=== PATIENT | female | born 1980 | race Caucasian/White ===

== ENCOUNTER 2017-05-05 14:42 | Inpatient (IN) | payer OTHER ==
[2017-05-05 14:51] VITALS: BMI 27.9
--- NOTE | 2017-05-05 14:57 | PDOC ---
Rapid Medical Evaluation Time Seen by Provider: 05/05/17 14:49 Medical Evaluation: Allergies Allergy/AdvReac Type Severity Reaction Status Date / Time No Known Allergies Allergy Verified 05/05/17 14:46 05/05/17 14:49 I have performed a brief in-person evaluation of this patient. The patient presents with a chief complaint of lower abdominal pain with vaginal bleeding and clots x 5 days. S/p 2 weeks ago, states vaginal bleeding decreased after , worsen in past 5 days, with clots, pain and heavier. Also states shortness of breath, and dizziness, took no medication so far. Pertinent physical exam findings diaphoretic, appears uncomfortable lungs clear bilat heart s1s2 tenderness in lower abdomen bilaterally I have ordered the following: cbc, bhcg, type and hold The patient will proceed to the ED for further evaluation.
[2017-05-05] MEDS ORDERED: KETOROLAC TROMETHAMINE 30 MG/1 ML VIAL IM ONE (14:58)
[2017-05-05 15:34] LABS: BASO % 0.2 % (0-2.0); EOS % 1.2 % (0-4.5); HEMATOCRIT 28.6 % (32.4-45.2); HEMOGLOBIN 9.9 GM/dL (10.7-15.3); MCH 31.7 pg (25.7-33.7); MCHC 34.7 g/dl (32.0-36.0); MEAN CELL VOLUME 91.5 fl (80-96); MONO % 2.1 % (3.8-10.2); NEUT % 87.5 % (42.8-82.8); PLATELET COUNT 377 K/MM3 (134-434); RBC 3.12 M/mm3 (3.60-5.2); WHITE BLOOD COUNT 15.5 K/mm3 (4.0-10.0)
--- NOTE | 2017-05-05 16:52 | PDOC ---
History of Present Illness - General Chief Complaint: Vaginal Bleeding Stated Complaint: VAGINAL BLEEDING Time Seen by Provider: 05/05/17 14:49 - History of Present Illness Initial Comments: 05/05/17 17:26 Ms. Sloan is a 36 yo female w/ no pmh who presents w/ 3 days of vaginal bleeding , occasional nausea, and pelvic pain. Ms. Sloan had a D&C 2 weeks ago after which she had some cramping and bleeding but reports that this had abated for 3 or 4 days before these new symptoms started. She reports she is currently bleeding consistent with a heavy period day. The patient denies chest pain, shortness of breath, headache and dizziness. Denies fever, chills, nausea, vomit, diarrhea and constipation. Denies dysuria, frequency, urgency and hematuria. Allergies: NKDA Past History - Past Medical History Allergies/Adverse Reactions: Allergies Allergy/AdvReac Type Severity Reaction Status Date / Time No Known Allergies Allergy Verified 05/05/17 14:46 Home Medications: Ambulatory Orders NK [No Known Home Medication] 05/05/17 COPD: No Other medical history: DENIES. - Suicide/Smoking/Psychosocial Hx Smoking History: Never smoked Review of Systems - Review of Systems Comments:: 05/05/17 17:52 GENERAL/CONSTITUTIONAL: No fever or chills. No weakness. HEAD, EYES, EARS, NOSE AND THROAT: No change in vision. No ear pain or discharge. No sore throat. CARDIOVASCULAR: No chest pain or shortness of breath RESPIRATORY: No cough, wheezing, or hemoptysis. GASTROINTESTINAL: +Pelvic pain bilaterally. Mild nausea without vomiting, diarrhea or constipation. GENITOURINARY: +Heavy menstrual bleeding as described. No dysuria, frequency, or change in urination. MUSCULOSKELETAL: No joint or muscle swelling or pain. No neck or back pain. SKIN: No rash NEUROLOGIC: No headache, vertigo, loss of consciousness, or change in strength/ sensation. ENDOCRINE: No increased thirst. No abnormal weight change HEMATOLOGIC/LYMPHATIC: No anemia, easy bleeding, or history of blood clots. ALLERGIC/IMMUNOLOGIC: No hives or skin allergy. *Physical Exam - Vital Signs Last Vital Signs Temp Pulse Resp BP Pulse Ox 98.9 F 109 H 19 129/88 100 05/05/17 14:46 05/05/17 14:46 05/05/17 14:46 05/05/17 14:46 05/05/17 14:46 - Physical Exam Comments: 05/05/17 17:53 GENERAL: Awake, alert, and fully oriented, in no acute distress HEAD: No signs of trauma, normocephalic, atraumatic EYES: PERRLA, EOMI, sclera anicteric, conjunctiva clear ENT: Auricles normal inspection, hearing grossly normal, nares patent, oropharynx clear without exudates. Moist mucosa NECK: Normal ROM, supple, no lymphadenopathy, JVD, or masses LUNGS: No distress, speaks full sentences, clear to auscultation bilaterally HEART: Regular rate and rhythm, normal S1 and S2, no murmurs, rubs or gallops, peripheral pulses normal and equal bilaterally. ABDOMEN: Soft, nontender, normoactive bowel sounds. No guarding, no rebound. No masses EXTREMITIES: Normal inspection, Normal range of motion, no edema. No clubbing or cyanosis. NEUROLOGICAL: Cranial nerves II through XII grossly intact. Normal speech, normal gait, no focal sensorimotor deficits SKIN: Warm, Dry, normal turgor, no rashes or lesions noted. : Patient extremely tender on vaginal exam. Blood in vaginal vault and draining from cervical os with scant yellow fluid as well. Cervix boggy. ED Treatment Course - LABORATORY CBC & Chemistry Diagram: 05/06/17 06:00 05/06/17 06:00 - ADDITIONAL ORDERS Additional order review: Laboratory Results 05/05/17 05/05/17 15:07 15:07 Beta HCG, Quant 452.5 Blood Type O POSITIVE Antibody Screen Negative 05/05/17 15:07 RBC 3.12 L MCV 91.5 MCHC 34.7 RDW 13.0 MPV 8.0 Neutrophils % 87.5 H Lymphocytes % 9.0 Monocytes % 2.1 L Eosinophils % 1.2 Basophils % 0.2 Medical Decision Making - Medical Decision Making 05/05/17 18:08 Ms. Sloan is a 36 yo female w/ no pmh who presents for evaluation of pelvic pain and bleeding as described. Exam/history concerning for endometritis; clindamycin 600 given and transvaginal US ordered to evaluate for POC. 05/05/17 19:04 Patient signed out to Dr. Shafer for further care. *DC/Admit/Observation/Transfer Diagnosis at time of Disposition: Vaginal bleeding - Discharge Dispostion Condition at time of disposition: Stable - Referrals - Patient Instructions - Post Discharge Activity
[2017-05-05] MEDS ORDERED: KETOROLAC TROMETHAMINE 30 MG/1 ML VIAL ONE (17:32)
[2017-05-05 18:05] LABS: URINE APPEARANCE SLCLOUDY; URINE BILIRUBIN NEGATIVE (NEGATIVE); URINE BLOOD 3+ (NEGATIVE); URINE COLOR LTYELLOW; URINE GLUCOSE (UA) NEGATIVE (NEGATIVE); URINE KETONE NEGATIVE (NEGATIVE); URINE NITRITE NEGATIVE (NEGATIVE); URINE PROTEIN NEGATIVE (NEGATIVE); URINE UROBILINOGEN NEGATIVE mg/dL (0.2-1.0)
[2017-05-05] MEDS ORDERED: CLINDAMYCIN 600MG PREMIX IVPB 600 MG/50 ML BAG IVPB ONE ×2 (18:06→18:12)
--- NOTE | 2017-05-05 18:08 | PDOC ---
Attending Attestation - Resident Resident Name: Jose Warren - ED Attending Attestation I have performed the following: I have examined & evaluated the patient, The case was reviewed & discussed with the resident, I agree w/resident's findings & plan, Exceptions are as noted - HPI HPI: 05/05/17 17:59 36y F , no pmhx presents with vag bleeding and lower abd pain. s/p D/C ~10 weeks ago in the city (?near [facility] -?[facility]), had some bleeding and pain but that resolved after a few days. Pt endorses onset of pelvic pain, and bleeding like a heavy period. Pt denies any carlos foul smelling discharge. pt denies feve/rchills, vomiting, vaginal discharge/bleeding on exam pt well appearing in n odistress abd soft, but focal tenderness in suprapubic region pelvic exam noted for blood and smal amount of foul discharge vitals reviewed, afebrile, initially slightly tachy but improved on reasessement blood work noted for leukocytosis to 15 lara obtain TVUS to r/o retained products - concern for possible endometritis - will start clindamycin - Physicial Exam PE: 05/05/17 19:34 see above - Medical Decision Making 05/05/17 19:34 see above case signed out to evening team to follow up and reassess & likely dw nurse gynecology regarding dispo
[2017-05-05 18:15] LABS: URINE LEUK ESTERASE 2+ (NEGATIVE)
[2017-05-05 18:18] LABS: EPI CELLS RARE /HPF (FEW); URINE BACTERIA RARE /hpf (NONE SEEN); URINE HYALINE CAST 2 /lpf; URINE MUCUS FEW
--- NOTE | 2017-05-05 20:27 | PDOC ---
*Physical Exam - Vital Signs Last Vital Signs Temp Pulse Resp BP Pulse Ox 98.5 F 96 H 18 124/66 100 05/05/17 18:10 05/05/17 18:10 05/05/17 18:10 05/05/17 18:10 05/05/17 18:10 - Physical Exam Comments: GENERAL: Awake, alert, and fully oriented, in no acute distress HEAD: No signs of trauma, normocephalic, atraumatic EYES: PERRLA, EOMI, sclera anicteric, conjunctiva clear ENT:Hearing grossly normal, nares patent, oropharynx clear without exudates. Moist mucosa NECK: Normal ROM, supple, no lymphadenopathy, JVD, or masses LUNGS: No distress, speaks full sentences, clear to auscultation bilaterally HEART: Regular rate and rhythm, normal S1 and S2, no murmurs, rubs or gallops, peripheral pulses normal and equal bilaterally. ABDOMEN: Soft, lower abdominal ttp, normoactive bowel sounds. No guarding, no rebound. No masses. Neg CVA ttp. EXTREMITIES : Normal inspection, Normal range of motion, no edema. No clubbing or cyanosis. SKIN: Warm, Dry, normal turgor, no rashes or lesions noted ED Treatment Course - LABORATORY CBC & Chemistry Diagram: 05/05/17 21:50 05/05/17 19:50 - ADDITIONAL ORDERS Additional order review: Laboratory Results 05/05/17 05/05/17 05/05/17 17:30 15:07 15:07 Beta HCG, Quant 452.5 Urine Color Ltyellow Urine Appearance Slcloudy Urine pH 6.0 Ur Specific [place] 1.016 Urine Protein Negative Urine Glucose (UA) Negative Urine Ketones Negative Urine Blood 3+ H Urine Nitrite Negative Urine Bilirubin Negative Urine Urobilinogen Negative Ur Leukocyte Esterase 2+ H Urine WBC (Auto) 15 Urine RBC (Auto) 564 Ur Epithelial Cells Rare Urine Bacteria Rare Hyaline Casts 2 Urine Mucus Few Blood Type O POSITIVE Antibody Screen Negative 05/05/17 15:07 RBC 3.12 L MCV 91.5 MCHC 34.7 RDW 13.0 MPV 8.0 Neutrophils % 87.5 H Lymphocytes % 9.0 Monocytes % 2.1 L Eosinophils % 1.2 Basophils % 0.2 - Medications Given in the ED: ED Medications Discontinued Medications Generic Name Dose Route Start Last Admin Trade Name Freq PRN Reason Stop Dose Admin Clindamycin Phosphate 600 mg in 50 mls @ 100 mls/hr 05/05/17 18:06 05/05/17 18:19 Cleocin 600 Mg Premix Ivpb - IVPB 05/05/17 18:35 100 mls/hr ONCE ONE Administration Ketorolac Tromethamine 30 mg 05/05/17 14:58 05/05/17 17:39 Toradol Injection - IM 05/05/17 14:59 30 mg ONCE ONE Administration Medical Decision Making - Medical Decision Making 05/05/17 20:27 36 yo F with no significant pmh who presents w/ 3 days of vaginal bleeding , and lower abdominal and pelvic pain s/p D/C 10 days ago [place] the [place] [facility]. Pt. with 3-4 days of bleeding initially after D&C 2 weeks ago.Denies N/V, F/C, CP, SOB, lightheadedness, urinary complaints, diarrhea, constipation. 1 pad per 2 hours. Vitals normal on arrival, and physical exam with slight suprpaubic lower abdominal ttp. Ed course noteable for WBC~15. 5 and UA with 564 RBC, and 3 + blood. TVUS pending. R/o retained POC. There is concern for possible endometritis. Clindamycin 600 mg started. Coags pending. ED Course: TVUS: Presence of doppler signal in endometrium suggestive of retained POC. Heterogoenous thickening of endometrium suggestive of hematoma/blood products. 05/05/17 20:50 Dr. Restrepo contacted at office number [phone] and cell phone with message requesting call back for retained POC. Per Dr. Restrepo Possible Methergine vs. D&C. Dr. Restrepo recommends Methergine Q6 0.2 mg. 05/05/17 21:42 Repeat CBC NS 1 L D5 1/2 NS, NPO 05/05/17 21:43 Patient bleeding improved. Pain is now slightly improved. 05/05/17 22:15 Repeat Hgb 9.9-->9.5 WBC 14.4 Methergine 0.2 Q6 hours for 24 hours 05/05/17 22:52 Admit to med/surg. Pt. accepted onto hospitalist service. *DC/Admit/Observation/Transfer Diagnosis at time of Disposition: Vaginal bleeding - Discharge Dispostion Condition at time of disposition: Stable Admit: No - Referrals - Patient Instructions Printed Discharge Instructions: DI for Vaginal Bleeding Additional Instructions: Please return to the emergency department with any new or worsening symptoms or concerns. Please follow up with your [employer]imator Project [employer] physician within 24 hours. Please take as Methergine 0.2 mg every 6 hours for the next 24 hours. 4 pills total. - Post Discharge Activity - Attestations Physician Attestion: 05/05/17 22:37 I attest to the information provided in this note.
[2017-05-05 20:45] LABS: ALK PHOS 83 U/L (45-117); ANION GAP 7 (8-16); BILIRUBIN,TOTAL 0.3 mg/dL (0.2-1.0); BLOOD UREA NITROGEN 10 mg/dL (7-18); CALCIUM 7.9 mg/dL (8.5-10.1); CHLORIDE 104 mmol/L (98-107); CO2 24 mmol/L (21-32); CREATININE 0.4 mg/dL (0.55-1.02); GLUCOSE,RANDOM 86 mg/dL (74-106); SGOT/AST 15 U/L (15-37); SGPT/ALT 40 U/L (12-78); SODIUM 135 mmol/L (136-145); TOT PROT 6.5 g/dl (6.4-8.2)
[2017-05-05] MEDS ORDERED: SODIUM CHLORIDE 1,000 ML IV STA (21:41)
[2017-05-05] MEDS ORDERED: DEXTROSE 5%-0.45% SALINE 1,000 ML IV SCH (21:45)
[2017-05-05 22:04] LABS: BASO % 0.3 % (0-2.0); EOS % 1.5 % (0-4.5); HEMATOCRIT 27.5 % (32.4-45.2); HEMOGLOBIN 9.5 GM/dL (10.7-15.3); LYMPH % 16.1 % (8-40); MCH 31.5 pg (25.7-33.7); MCHC 34.5 g/dl (32.0-36.0); MEAN CELL VOLUME 91.3 fl (80-96); MEAN PLT VOLUME 7.8 fl (7.5-11.1); NEUT % 79.1 % (42.8-82.8); PLATELET COUNT 357 K/MM3 (134-434); RBC 3.01 M/mm3 (3.60-5.2); RDW 12.9 % (11.6-15.6); WHITE BLOOD COUNT 14.4 K/mm3 (4.0-10.0)
[2017-05-05 22:31] LABS: INR 1.04 (0.82-1.09); PROTHROMBIN TIME (PATIENT) 11.8 SEC (9.98-11.88)
[2017-05-05 22:33] LABS: ACTIVATED PTT 23.5 SECONDS (26.9-34.4)
[2017-05-05] MEDS ORDERED: METHYLERGONOVINE MALEATE 0.2 MG TABLET (FP) PO ONE (22:51)
--- NOTE | 2017-05-05 23:00 | PN ---
Teaching Attending Note Name of Resident: Terell Esparza ATTENDING PHYSICIAN STATEMENT I saw and evaluated the patient. I reviewed the resident's note and discussed the case with the resident. I agree with the resident's findings and plan as documented. SUBJECTIVE: 36 yo F yo no pmhx.who presents with bleeding from the vagina and lower abdominal pain. She had a D&C done 10 weeks ago ( ?[facility]). States she has pelvic pain and heavy vaginal bleeding. States she was bleeding at rate of 1 pad/hr earlier today, but now bleeding has significantly subsided. Notes no fevers or chills. No foul/malorderous discharge. No N, V,D. No chest pain, pressure or shortness of breath. Does note suprapubic pain. OBJECTIVE: Physical: VS: Vital Signs Period Temp Pulse Resp BP Sys/Dodson Pulse Ox Last 24 Hr 98.5 F-98.9 F 86-109 18-19 103-129/60-88 100-100 GEN: NAD, Resting in bed, AA0X3 HEENT: NCAT, PERRL, Throat without erythema or exudates CARD: RRR S1, S2 RESP: CTAB ABD: BSx4, TTP lower abdomen EXT: - C/C/E Vaginal Exam- Deferred as it was done earlier. CBCD WBC 14.4 K/mm3 (4.0-10.0) H 05/05/17 21:50 RBC 3.01 M/mm3 (3.60-5.2) L 05/05/17 21:50 Hgb 9.5 GM/dL (10.7-15.3) L 05/05/17 21:50 Hct 27.5 % (32.4-45.2) L 05/05/17 21:50 MCV 91.3 fl (80-96) 05/05/17 21:50 MCHC 34.5 g/dl (32.0-36.0) 05/05/17 21:50 RDW 12.9 % (11.6-15.6) 05/05/17 21:50 Plt Count 357 K/MM3 (134-434) 05/05/17 21:50 MPV 7.8 fl (7.5-11.1) 05/05/17 21:50 CMP Sodium 135 mmol/L (136-145) L 05/05/17 19:50 Potassium 4.0 mmol/L (3.5-5.1) 05/05/17 19:50 Chloride 104 mmol/L (98-107) 05/05/17 19:50 Carbon Dioxide 24 mmol/L (21-32) 05/05/17 19:50 Anion Gap 7 (8-16) L 05/05/17 19:50 BUN 10 mg/dL (7-18) 05/05/17 19:50 Creatinine 0.4 mg/dL (0.55-1.02) L 05/05/17 19:50 Creat Clearance w eGFR > 60 (>60) 05/05/17 19:50 Random Glucose 86 mg/dL (74-106) 05/05/17 19:50 Calcium 7.9 mg/dL (8.5-10.1) L 05/05/17 19:50 Total Bilirubin 0.3 mg/dL (0.2-1.0) 05/05/17 19:50 AST 15 U/L (15-37) 05/05/17 19:50 ALT 40 U/L (12-78) 05/05/17 19:50 Alkaline Phosphatase 83 U/L (45-117) 05/05/17 19:50 Total Protein 6.5 g/dl (6.4-8.2) 05/05/17 19:50 Albumin 3.0 g/dl (3.4-5.0) L 05/05/17 19:50 Urine Test Results Urine Color Ltyellow 05/05/17 17:30 Urine Appearance Slcloudy 05/05/17 17:30 Urine pH 6.0 (5.0-8.0) 05/05/17 17:30 Ur Specific [place] 1.016 (1.001-1.035) 05/05/17 17:30 Urine Protein Negative (NEGATIVE) 05/05/17 17:30 Urine Glucose (UA) Negative (NEGATIVE) 05/05/17 17:30 Urine Ketones Negative (NEGATIVE) 05/05/17 17:30 Urine Blood 3+ (NEGATIVE) H 05/05/17 17:30 Urine Nitrite Negative (NEGATIVE) 05/05/17 17:30 Urine Bilirubin Negative (NEGATIVE) 05/05/17 17:30 Ur Leukocyte Esterase 2+ (NEGATIVE) H 05/05/17 17:30 Ur Epithelial Cells Rare /HPF (FEW) 05/05/17 17:30 Urine Bacteria Rare /hpf (NONE SEEN) 05/05/17 17:30 Urine Mucus Few 05/05/17 17:30 US Tranvaginal: Marked heterogenous thickening of the endometrium, No intrauterine gest. sac. Retained products of conception. ASSESSMENT AND PLAN: 36 yo F yo no pmhx.who presents with bleeding from the vagina and lower abdominal pain, found to have retained POC and possible endometritis 1.) Retained Products of Conception - ED spoke with Dr. Restrepo of [employer] [employer] - Recc'd Methergine 0.2mg Q 6hrs - Ruiz Cx - IVF - CBC Q 12 - COAGS - Type & Screen - NPO 2.) Endometritis - Clindamycin/Gentamycin - Ruiz cx - ID consult 3) UTI - U cx - C/W Abx as above 4.) Dvt Ppx - SCDS
--- NOTE | 2017-05-05 23:17 | HP ---
CHIEF COMPLAINT: Worsening lower abdominal pain and vaginal bleed x3 days PCP: HISTORY OF PRESENT ILLNESS: Pt is a 36 yo F (T4 A1 L4) presenting with worsening lower abdominal pain and vaginal bleed since an 2 weeks ago. Pt had a D&C in a different hospital following 18 weeks gestation. She has been having vaginal bleed for the past 2 weeks, that has increased in quantity with large clots and up to 10 changes of pads daily, over the past 3 days. There is associated 8/10 colicky lower abdominal pain, radiating to the back and dysuria. There is also nausea but no vomiting. Today, Pt noticed chills but no fevers. There is associated dizziness, but no syncope, no SOB, no chest pain, no palpitations, no leg swellings and no cough. No change in bowel habit. Last BM was today, of brown, non-bloody well formed stool. Patient has had reduced oral intake due to nausea. Vaginal examination in the ED showed blood in vaginal vault, and draining cervical os with scant yellow fluid and boggy cervix. TVUS: Retained POC. Thickened endometrium suggestive of hematoma/blood products. Dr Restrepo was consulted and recommended methergine 0.2mg Q6H x24hrs ER course was notable for: (1)WBC-14.4, H/H-9.5/27.5 (2)Qnt B-HCHG- 452, UA- LE-2+, bld 3+, RBC-564, WBC-15, Ucx (3) Ketorolac 30mg stat, clindamycin 600mg, IV NS, methergine 0.2mg Recent Travel: PAST MEDICAL HISTORY: None PAST SURGICAL HISTORY: D&C Social History: Smoking: Alcohol: Drugs: Family History: Allergies No Known Allergies Allergy (Verified 05/05/17 14:46) HOME MEDICATIONS: Home Medications Medication Instructions Recorded NK [No Known Home Medication] 05/05/17 REVIEW OF SYSTEMS CONSTITUTIONAL: Absent: fever, chills, diaphoresis, generalized weakness, malaise, loss of appetite, weight change HEENT: Absent: rhinorrhea, nasal congestion, throat pain, throat swelling, difficulty swallowing, mouth swelling, ear pain, eye pain, visual changes CARDIOVASCULAR: Absent: chest pain, syncope, palpitations, irregular heart rate, lightheadedness , peripheral edema RESPIRATORY: Absent: cough, shortness of breath, dyspnea with exertion, orthopnea, wheezing, stridor, hemoptysis GASTROINTESTINAL: Absent: abdominal pain, abdominal distension, nausea, vomiting, diarrhea, constipation, melena, hematochezia GENITOURINARY: Absent: dysuria, frequency, urgency, hesitancy, hematuria, flank pain, genital pain MUSCULOSKELETAL: Absent: myalgia, arthralgia, joint swelling, back pain, neck pain SKIN: Absent: rash, itching, pallor HEMATOLOGIC/IMMUNOLOGIC: Absent: easy bleeding, easy bruising, lymphadenopathy, frequent infections ENDOCRINE: Absent: unexplained weight gain, unexplained weight loss, heat intolerance, cold intolerance NEUROLOGIC: Absent: headache, focal weakness or paresthesias, dizziness, unsteady gait, seizure, mental status changes, bladder or bowel incontinence PSYCHIATRIC: Absent: anxiety, depression, suicidal or homicidal ideation, hallucinations. PHYSICAL EXAMINATION Vital Signs - 24 hr 05/05/17 05/05/17 05/05/17 14:46 18:10 20:52 Temperature 98.9 F 98.5 F 98.5 F Pulse Rate 109 H Pulse Rate [ 96 H 86 Right Radial] Respiratory 19 18 18 Rate Blood Pressure 129/88 Blood Pressure 124/66 103/60 [Left Arm] O2 Sat by Pulse 100 100 100 Oximetry (%) GENERAL: Awake, alert, and fully oriented, in no acute distress. HEAD: Normal with no signs of trauma. EYES: Pupils equal, round and reactive to light, extraocular movements intact, sclera anicteric, conjunctiva clear, no pallor. EARS, NOSE, THROAT: Ears normal, nares patent, oropharynx clear without exudates. Moist mucous membranes. NECK: Normal range of motion, supple without lymphadenopathy, JVD, or masses. LUNGS: Breath sounds equal, clear to auscultation bilaterally. No wheezes, and no crackles. HEART: Regular rate and rhythm, normal S1 and S2 without murmur, rub or gallop. ABDOMEN: Soft, suprapubic tenderness, mild suprapubic fullness up to mid umbilical line, normoactive bowel sounds, no guarding, no rebound : Limited bleeding noted in pad (spotting), reduced volume of blood in ED s/p methergine dose MUSCULOSKELETAL: Normal range of motion at all joints. No bony deformities or tenderness. No CVA tenderness. UPPER EXTREMITIES: 2+ pulses, warm, well-perfused. No cyanosis. No clubbing. No peripheral edema. LOWER EXTREMITIES: 2+ pulses, warm, well-perfused. No calf tenderness. No peripheral edema. NEUROLOGICAL: Cranial nerves II-XII intact. Normal speech. Normal gait. PSYCHIATRIC: Cooperative. Good eye contact. Appropriate mood and affect. Laboratory Results - last 24 hr 05/05/17 05/05/17 05/05/17 15:07 15:07 15:07 WBC 15.5 H RBC 3.12 L Hgb 9.9 L Hct 28.6 L MCV 91.5 MCH 31.7 MCHC 34.7 RDW 13.0 Plt Count 377 MPV 8.0 Neutrophils % 87.5 H Lymphocytes % 9.0 Monocytes % 2.1 L Eosinophils % 1.2 Basophils % 0.2 PT with INR INR PTT (Actin FS) Sodium Potassium Chloride Carbon Dioxide Anion Gap BUN Creatinine Creat Clearance w eGFR Random Glucose Calcium Total Bilirubin AST ALT Alkaline Phosphatase Total Protein Albumin Beta HCG, Quant 452.5 Urine Color Urine Appearance Urine pH Ur Specific [place] Urine Protein Urine Glucose (UA) Urine Ketones Urine Blood Urine Nitrite Urine Bilirubin Urine Urobilinogen Ur Leukocyte Esterase Urine WBC (Auto) Urine RBC (Auto) Ur Epithelial Cells Urine Bacteria Hyaline Casts Urine Mucus Blood Type O POSITIVE Antibody Screen Negative 05/05/17 05/05/17 05/05/17 17:30 19:50 21:50 WBC 14.4 H RBC 3.01 L Hgb 9.5 L Hct 27.5 L MCV 91.3 MCH 31.5 MCHC 34.5 RDW 12.9 Plt Count 357 MPV 7.8 Neutrophils % 79.1 Lymphocytes % 16.1 D Monocytes % 3.0 L Eosinophils % 1.5 Basophils % 0.3 PT with INR INR PTT (Actin FS) Sodium 135 L Potassium 4.0 Chloride 104 Carbon Dioxide 24 Anion Gap 7 L BUN 10 Creatinine 0.4 L Creat Clearance w eGFR > 60 Random Glucose 86 Calcium 7.9 L Total Bilirubin 0.3 AST 15 ALT 40 Alkaline Phosphatase 83 Total Protein 6.5 Albumin 3.0 L Beta HCG, Quant Urine Color Ltyellow Urine Appearance Slcloudy Urine pH 6.0 Ur Specific [place] 1.016 Urine Protein Negative Urine Glucose (UA) Negative Urine Ketones Negative Urine Blood 3+ H Urine Nitrite Negative Urine Bilirubin Negative Urine Urobilinogen Negative Ur Leukocyte Esterase 2+ H Urine WBC (Auto) 15 Urine RBC (Auto) 564 Ur Epithelial Cells Rare Urine Bacteria Rare Hyaline Casts 2 Urine Mucus Few Blood Type Antibody Screen 05/05/17 21:50 WBC RBC Hgb Hct MCV MCH MCHC RDW Plt Count MPV Neutrophils % Lymphocytes % Monocytes % Eosinophils % Basophils % PT with INR 11.80 INR 1.04 PTT (Actin FS) 23.5 L Sodium Potassium Chloride Carbon Dioxide Anion Gap BUN Creatinine Creat Clearance w eGFR Random Glucose Calcium Total Bilirubin AST ALT Alkaline Phosphatase Total Protein Albumin Beta HCG, Quant Urine Color Urine Appearance Urine pH Ur Specific [place] Urine Protein Urine Glucose (UA) Urine Ketones Urine Blood Urine Nitrite Urine Bilirubin Urine Urobilinogen Ur Leukocyte Esterase Urine WBC (Auto) Urine RBC (Auto) Ur Epithelial Cells Urine Bacteria Hyaline Casts Urine Mucus Blood Type Antibody Screen TVUS: Retained POC. Thickened endometrium suggestive of hematoma/blood products. ASSESSMENT/PLAN: Pt is a 36 yo F (T4 A1 L4) presenting with worsening lower abdominal pain and vaginal bleed since an 2 weeks ago. Sepsis 2/2 Endometritis: WBC-14.4, tachycardia Retained products of conception- TVUS Qnt BHCG- 452 Continue IV normal saline @100/hr Cont iv clindamycin 900mg Q8H Gentamicin 100mg ivpb Q8H Iv morphine 2mg (pain >6) PO tylenol (pain<6) PO methergine 0.2mg Q6H x24Hr Gyne consult- Dr Restrepo NPO Monitor CBC Type and screen PT, PTT EKG Ucx, blood cx, UA UTI: Dysuria Positive LE cont antibiotics Pending urine culture FEN NS@100 Monitor lytes and replete as needed NPO PPx: Hold heparin SCDs Dispo: Admit inpatient Visit type - Emergency Visit Emergency Visit: Yes ED Registration Date: 05/06/17 Care time: The patient presented to the Emergency Department on the above date and was hospitalized for further evaluation of their emergent condition. - New Patient This patient is new to me today: Yes Date on this admission: 05/06/17 - Critical Care Critical Care patient: No Hospitalist Screening - Colonoscopy Questionnaire Colonoscopy Questionnaire: Colonoscopy Questionnaire - Patient: 50 - 75 years old and never had a screening colonoscopy: No History of colon or rectal polyps, or CA: Unknown History of IBD, Crohn's disease or UC: Unknown History of abdominal radiation therapy as a child: Unknown - Relative: 1 with colon or rectal CA, or polyps at age 60 or younger: Unknown Colon or rectal CA diagnosed at age 45 or younger: Unknown Multiple relatives with colon or rectal CA: Unknown - Outcome: Screening Result: Negative Screen
[2017-05-06] MEDS ORDERED: GENTAMICIN 100 MG/100 ML BAG IVPB ONE (00:30)
[2017-05-06] MEDS ORDERED: morphine SULFATE 4 MG/ML VIAL IVPUSH PRN (00:48)
[2017-05-06] MEDS: ACETAMINOPHEN 325 MG TABLET (FP) PO PRN ×2 (00:59→16:56)
[2017-05-06] MEDS ORDERED: SODIUM CHLORIDE 1,000 ML IV SCH (01:00)
[2017-05-06] MEDS ORDERED: GENTAMICIN INJECTION 100 MG in SODIUM CHLORIDE 100 ML IVPB ONE (01:15)
[2017-05-06] MEDS: CLINDAMYCIN 900 MG PREMIX IVPB 900 MG/50 ML BAG IVPB SCH ×2 (02:42→10:05)
[2017-05-06] MEDS ORDERED: METHYLERGONOVINE MALEATE 0.2 MG/1 ML AMP IM SCH (04:00)
[2017-05-06] MEDS: METHYLERGONOVINE MALEATE 0.2 MG TABLET (FP) PO SCH ×3 (06:20→18:02)
--- NOTE | 2017-05-06 07:11 | PN ---
Physical Exam: SUBJECTIVE: Patient seen and examined OBJECTIVE: Vital Signs Period Temp Pulse Resp BP Sys/Dodson Pulse Ox Last 24 Hr 98.3 F-98.9 F 80-109 18-19 94-129/54-88 99-100 GENERAL: The patient is awake, alert, and fully oriented, in no acute distress. HEAD: Normal with no signs of trauma. EYES: PERRL, extraocular movements intact, sclera anicteric, conjunctiva clear. No ptosis. ENT: Ears normal, nares patent, oropharynx clear without exudates, moist mucous membranes. NECK: Trachea midline, full range of motion, supple. LUNGS: Breath sounds equal, clear to auscultation bilaterally, no wheezes, no crackles, no accessory muscle use. HEART: Regular rate and rhythm, S1, S2 without murmur, rub or gallop. ABDOMEN: Soft, nontender, nondistended, normoactive bowel sounds, no guarding, no rebound, no hepatosplenomegaly, no masses. EXTREMITIES: 2+ pulses, warm, well-perfused, no edema. NEUROLOGICAL: Cranial nerves II through XII grossly intact. Normal speech, gait not observed. PSYCH: Normal mood, normal affect. SKIN: Warm, dry, normal turgor, no rashes or lesions noted Laboratory Results - last 24 hr 05/05/17 05/05/17 05/05/17 15:07 15:07 15:07 WBC 15.5 H RBC 3.12 L Hgb 9.9 L Hct 28.6 L MCV 91.5 MCH 31.7 MCHC 34.7 RDW 13.0 Plt Count 377 MPV 8.0 Neutrophils % 87.5 H Lymphocytes % 9.0 Monocytes % 2.1 L Eosinophils % 1.2 Basophils % 0.2 PT with INR INR PTT (Actin FS) Sodium Potassium Chloride Carbon Dioxide Anion Gap BUN Creatinine Creat Clearance w eGFR Random Glucose Calcium Total Bilirubin AST ALT Alkaline Phosphatase Total Protein Albumin Beta HCG, Quant 452.5 Urine Color Urine Appearance Urine pH Ur Specific [place] Urine Protein Urine Glucose (UA) Urine Ketones Urine Blood Urine Nitrite Urine Bilirubin Urine Urobilinogen Ur Leukocyte Esterase Urine WBC (Auto) Urine RBC (Auto) Ur Epithelial Cells Urine Bacteria Hyaline Casts Urine Mucus Blood Type O POSITIVE Antibody Screen Negative 05/05/17 05/05/17 05/05/17 17:30 19:50 21:50 WBC 14.4 H RBC 3.01 L Hgb 9.5 L Hct 27.5 L MCV 91.3 MCH 31.5 MCHC 34.5 RDW 12.9 Plt Count 357 MPV 7.8 Neutrophils % 79.1 Lymphocytes % 16.1 D Monocytes % 3.0 L Eosinophils % 1.5 Basophils % 0.3 PT with INR INR PTT (Actin FS) Sodium 135 L Potassium 4.0 Chloride 104 Carbon Dioxide 24 Anion Gap 7 L BUN 10 Creatinine 0.4 L Creat Clearance w eGFR > 60 Random Glucose 86 Calcium 7.9 L Total Bilirubin 0.3 AST 15 ALT 40 Alkaline Phosphatase 83 Total Protein 6.5 Albumin 3.0 L Beta HCG, Quant Urine Color Ltyellow Urine Appearance Slcloudy Urine pH 6.0 Ur Specific [place] 1.016 Urine Protein Negative Urine Glucose (UA) Negative Urine Ketones Negative Urine Blood 3+ H Urine Nitrite Negative Urine Bilirubin Negative Urine Urobilinogen Negative Ur Leukocyte Esterase 2+ H Urine WBC (Auto) 15 Urine RBC (Auto) 564 Ur Epithelial Cells Rare Urine Bacteria Rare Hyaline Casts 2 Urine Mucus Few Blood Type Antibody Screen 05/05/17 21:50 WBC RBC Hgb Hct MCV MCH MCHC RDW Plt Count MPV Neutrophils % Lymphocytes % Monocytes % Eosinophils % Basophils % PT with INR 11.80 INR 1.04 PTT (Actin FS) 23.5 L Sodium Potassium Chloride Carbon Dioxide Anion Gap BUN Creatinine Creat Clearance w eGFR Random Glucose Calcium Total Bilirubin AST ALT Alkaline Phosphatase Total Protein Albumin Beta HCG, Quant Urine Color Urine Appearance Urine pH Ur Specific [place] Urine Protein Urine Glucose (UA) Urine Ketones Urine Blood Urine Nitrite Urine Bilirubin Urine Urobilinogen Ur Leukocyte Esterase Urine WBC (Auto) Urine RBC (Auto) Ur Epithelial Cells Urine Bacteria Hyaline Casts Urine Mucus Blood Type Antibody Screen Active Medications Generic Name Dose Route Start Last Admin Trade Name Freq PRN Reason Stop Dose Admin Acetaminophen 650 mg 05/06/17 00:48 05/06/17 00:59 Tylenol - PO 650 mg Q6H PRN Administration FEVER Clindamycin Phosphate 900 mg in 50 mls @ 100 mls/hr 05/06/17 02:00 05/06/17 02:42 Cleocin 900 Mg Premix Ivpb - IVPB 100 mls/hr Q8H-IV JON Administration Sodium Chloride 1,000 mls @ 100 mls/hr 05/06/17 01:00 03/06/18 01:00 Normal Saline - IV 100 mls/hr ASDIR JON Administration Methylergonovine Maleate 0.2 mg 05/06/17 06:00 05/06/17 06:20 Methergine - PO 05/06/17 18:01 0.2 mg Q6HPO JON Administration Morphine Sulfate 2 mg 05/06/17 00:48 Morphine Sulfate IVPUSH Q4H PRN PAIN LEVEL 6-10 ASSESSMENT/PLAN: Pt is a 36 yo F (T4 A1 L4) presenting with worsening lower abdominal pain and vaginal bleed since an 2 weeks ago.
[2017-05-06 07:41] LABS: BASO % 0.7 % (0-2.0); EOS % 5.5 % (0-4.5); HEMATOCRIT 23.5 % (32.4-45.2); HEMOGLOBIN 8.2 GM/dL (10.7-15.3); LYMPH % 31.2 % (8-40); MCH 31.9 pg (25.7-33.7); MEAN CELL VOLUME 91.2 fl (80-96); MEAN PLT VOLUME 7.7 fl (7.5-11.1); MONO % 4.7 % (3.8-10.2); NEUT % 57.9 % (42.8-82.8); PLATELET COUNT 283 K/MM3 (134-434); RBC 2.58 M/mm3 (3.60-5.2); RDW 13.3 % (11.6-15.6); WHITE BLOOD COUNT 10.4 K/mm3 (4.0-10.0)
[2017-05-06 07:50] LABS: INR 1.03 (0.82-1.09); PROTHROMBIN TIME (PATIENT) 11.6 SEC (9.98-11.88)
[2017-05-06 08:07] LABS: ALBUMIN 2.6 g/dl (3.4-5.0); ANION GAP 8 (8-16); BLOOD UREA NITROGEN 6 mg/dL (7-18); CALCIUM 7.5 mg/dL (8.5-10.1); CHLORIDE 108 mmol/L (98-107); CO2 23 mmol/L (21-32); GLUCOSE,RANDOM 97 mg/dL (74-106); MAGNESIUM 2.1 mg/dL (1.8-2.4); POTASSIUM 3.5 mmol/L (3.5-5.1); SODIUM 139 mmol/L (136-145)
[2017-05-06 08:11] LABS: ALK PHOS 69 U/L (45-117); BILIRUBIN,TOTAL 0.3 mg/dL (0.2-1.0); CREATININE 0.4 mg/dL (0.55-1.02); PHOSPHOROUS 3.2 mg/dL (2.5-4.9); SGOT/AST 12 U/L (15-37); SGPT/ALT 36 U/L (12-78); TOT PROT 5.7 g/dl (6.4-8.2)
--- NOTE | 2017-05-06 09:51 | CON.OBG ---
Consult Consult Specialty:: ASSEMBLER ARRANGER Reason for Consultation:: Vaginal bleeding - History of Present Illness Chief Complaint: Vaginal bleeding / Abdominal pain History of Present Illness: 36 yo status post termination of @ 18 weeks at another location, presented to ER c/o vaginal bleeding and abdominal pain. A Transvaginal sonogram done and showed evidence of thicken endometrium but no gestational sac. I came to see patient, She's lying comfortably in bed. She denies any dizziness nor malaise. She's afebrile. - History Source History Provided By: Patient Limitations to Obtaining History: No Limitations - Past Medical History ...LMP: 04/22/17 ...: No ...: 5 ...Para: 4 - Past Surgical History Past Surgical History: Yes: None - Alcohol/Substance Use Hx Alcohol Use: No - Smoking History Smoking history: Never smoked - Social History History of Recent Travel: No Home Medications - Allergies Allergies/Adverse Reactions: Allergies Allergy/AdvReac Type Severity Reaction Status Date / Time No Known Allergies Allergy Verified 05/05/17 14:46 - Home Medications Home Medications: Ambulatory Orders NK [No Known Home Medication] 05/05/17 Family Disease History - Family Disease History Family History: Unremarkable Review of Systems - Review of Systems Constitutional: reports: Chills Eyes: reports: No Symptoms HENT: reports: No Symptoms Neck: reports: No Symptoms Cardiovascular: reports: No Symptoms Respiratory: reports: No Symptoms Gastrointestinal: reports: No Symptoms Genitourinary: reports: Vaginal Bleeding Breasts: reports: No Symptoms Reported Musculoskeletal: reports: No Symptoms Integumentary: reports: No Symptoms Neurological: reports: No Symptoms Endocrine: reports: No Symptoms Hematology/Lymphatic: reports: No Symptoms Psychiatric: reports: No Symptoms Pain Intensity: 0 Physical Exam-BUILDINGS AND GROUNDS DIRECTOR Vital Signs: Vital Signs Temperature 98.3 F 05/06/17 06:00 Pulse Rate 80 05/06/17 06:00 Respiratory Rate 18 05/06/17 06:00 Blood Pressure 94/54 05/06/17 06:00 O2 Sat by Pulse Oximetry (%) 99 05/06/17 00:45 Constitutional: Yes: Well Nourished Eyes: Yes: Conjunctiva Clear HENT: Yes: Atraumatic Neck: Yes: Supple Cardiovascular: Yes: Regular Rate and Rhythm Respiratory: Yes: Regular Gastrointestinal: Yes: Normal Bowel Sounds. No: Distention, Tenderness Pelvis: Yes: WNL External Genitalia: Yes: Normal Vaginal Exam: Yes: Other (Vaginal spotting) Cervix: Yes: Other (Os closed) Uterus: Yes: Firm Breast(s): Yes: WNL Neurological: Yes: Alert, Oriented ...Motor Strength: WNL Psychiatric: Yes: Alert, Oriented Labs: CBC, BMP 05/06/17 06:00 05/06/17 06:00 Assessment/Plan Vaginal bleeding Status post termination of Leukocytosis improving R/O POC Continue methergine Continue antibiotic Call BUILDINGS AND GROUNDS DIRECTOR if needed
--- NOTE | 2017-05-06 13:09 | PN ---
Teaching Attending Note Name of Resident: Frederic Starkey ATTENDING PHYSICIAN STATEMENT I saw and evaluated the patient. I reviewed the resident's note and discussed the case with the resident. I agree with the resident's findings and plan as documented. SUBJECTIVE:continues to have dysuria and urinary frequency. vaginal spotting stopped yesterday shortly after receiving medications in the ER. states after elective 2 weeks ago spotting stopped after a few days but then past 3 days had sudden onset of vaginal bleeding with clots. denies Cp, SOB, fever, chills, N/V/C/D OBJECTIVE: Last Vital Signs Temp Pulse Resp BP Pulse Ox 98.2 F 76 18 105/61 99 05/06/17 10:00 05/06/17 10:00 05/06/17 10:05/06/17 10:05/06/17 00:45 General NAD CV S1 S2 RRR no murmur/rub/gallop Lungs CTA B/L no wheezing/rales/rhonchi Abdomen soft +suprapubic tenderness no rebound or guarding. ASSESSMENT AND PLAN: 36yo F with no significant PMH but with recent elective 2 weeks ago presenting with vaginal bleeding and dysuria 1. Sepsis due to endometritis and UTI- afebrile. leukocytosis trending down. spoke with SUPERVISOR POULTRY PROCESSING who is not concerned for retained products of conception,. states it appears more consistent with recent D&C. as per SUPERVISOR POULTRY PROCESSING no indication for repeating u/s at this time. will cont to treat for endometritis. Consult ID. on Gentamycin and Clinda day 1. f/u Cx. will d/c IVF 2. Acute blood loss anemia- due to vaginal bleeding. now resolved. on methorgine. no indication for txn. cont to monitor closely. repeat if develops vaginal bleeding. check iron studies 3. DVT ppx- EAM
--- NOTE | 2017-05-06 14:17 | PN ---
Physical Exam: SUBJECTIVE: Patient seen and examined. Patient says abdominal pain has subsided. She says she continues to have dysuria, and urinary frequency. Also says the vaginal bleeding has resolved this morning. Patien denies abdominal pain, chills, fevers, nausea, vomiting, chest pain. OBJECTIVE: Vital Signs Period Temp Pulse Resp BP Sys/Dodson Pulse Ox Last 24 Hr 98.2 F-98.9 F 76-109 18-19 94-129/54-88 99-100 GENERAL: The patient is awake, alert, and fully oriented, in no acute distress. EYES: PERRL, extraocular movements intact, sclera anicteric, conjunctiva clear. ENT: oropharynx clear without exudates, moist mucous membranes. NECK: supple. LUNGS: Breath sounds equal, clear to auscultation bilaterally, no wheezes, no crackles, no accessory muscle use. HEART: Regular rate and rhythm, S1, S2 without murmur, rub or gallop. ABDOMEN: suprapubic tenderness to palpation, no rebound or guarding, +BS, nondistended EXTREMITIES: 2+ pulses, warm, well-perfused, no edema. NEUROLOGICAL: Cranial nerves II through XII grossly intact. Normal speech, gait not observed. PSYCH: Normal mood, normal affect. SKIN: Warm, dry, normal turgor, no rashes or lesions noted Laboratory Results - last 24 hr 05/05/17 05/05/17 05/05/17 15:07 15:07 15:07 WBC 15.5 H RBC 3.12 L Hgb 9.9 L Hct 28.6 L MCV 91.5 MCH 31.7 MCHC 34.7 RDW 13.0 Plt Count 377 MPV 8.0 Neutrophils % 87.5 H Lymphocytes % 9.0 Monocytes % 2.1 L Eosinophils % 1.2 Basophils % 0.2 PT with INR INR PTT (Actin FS) Sodium Potassium Chloride Carbon Dioxide Anion Gap BUN Creatinine Creat Clearance w eGFR Random Glucose Lactic Acid Calcium Phosphorus Magnesium Total Bilirubin AST ALT Alkaline Phosphatase Total Protein Albumin Beta HCG, Quant 452.5 Urine Color Urine Appearance Urine pH Ur Specific [place] Urine Protein Urine Glucose (UA) Urine Ketones Urine Blood Urine Nitrite Urine Bilirubin Urine Urobilinogen Ur Leukocyte Esterase Urine WBC (Auto) Urine RBC (Auto) Ur Epithelial Cells Urine Bacteria Hyaline Casts Urine Mucus Blood Type O POSITIVE Antibody Screen Negative 05/05/17 05/05/17 05/05/17 17:30 19:50 21:50 WBC 14.4 H RBC 3.01 L Hgb 9.5 L Hct 27.5 L MCV 91.3 MCH 31.5 MCHC 34.5 RDW 12.9 Plt Count 357 MPV 7.8 Neutrophils % 79.1 Lymphocytes % 16.1 D Monocytes % 3.0 L Eosinophils % 1.5 Basophils % 0.3 PT with INR INR PTT (Actin FS) Sodium 135 L Potassium 4.0 Chloride 104 Carbon Dioxide 24 Anion Gap 7 L BUN 10 Creatinine 0.4 L Creat Clearance w eGFR > 60 Random Glucose 86 Lactic Acid Calcium 7.9 L Phosphorus Magnesium Total Bilirubin 0.3 AST 15 ALT 40 Alkaline Phosphatase 83 Total Protein 6.5 Albumin 3.0 L Beta HCG, Quant Urine Color Ltyellow Urine Appearance Slcloudy Urine pH 6.0 Ur Specific [place] 1.016 Urine Protein Negative Urine Glucose (UA) Negative Urine Ketones Negative Urine Blood 3+ H Urine Nitrite Negative Urine Bilirubin Negative Urine Urobilinogen Negative Ur Leukocyte Esterase 2+ H Urine WBC (Auto) 15 Urine RBC (Auto) 564 Ur Epithelial Cells Rare Urine Bacteria Rare Hyaline Casts 2 Urine Mucus Few Blood Type Antibody Screen 05/05/17 05/06/17 05/06/17 21:50 06:00 06:00 WBC 10.4 H RBC 2.58 L Hgb 8.2 L D Hct 23.5 L MCV 91.2 MCH 31.9 MCHC 35.0 RDW 13.3 Plt Count 283 D MPV 7.7 Neutrophils % 57.9 D Lymphocytes % 31.2 D Monocytes % 4.7 Eosinophils % 5.5 H D Basophils % 0.7 PT with INR 11.80 11.60 INR 1.04 1.03 PTT (Actin FS) 23.5 L Sodium Potassium Chloride Carbon Dioxide Anion Gap BUN Creatinine Creat Clearance w eGFR Random Glucose Lactic Acid Calcium Phosphorus Magnesium Total Bilirubin AST ALT Alkaline Phosphatase Total Protein Albumin Beta HCG, Quant Urine Color Urine Appearance Urine pH Ur Specific [place] Urine Protein Urine Glucose (UA) Urine Ketones Urine Blood Urine Nitrite Urine Bilirubin Urine Urobilinogen Ur Leukocyte Esterase Urine WBC (Auto) Urine RBC (Auto) Ur Epithelial Cells Urine Bacteria Hyaline Casts Urine Mucus Blood Type Antibody Screen 03/06/18 03/06/18 03/06/18 06:00 06:00 06:00 WBC RBC Hgb Hct MCV MCH MCHC RDW Plt Count MPV Neutrophils % Lymphocytes % Monocytes % Eosinophils % Basophils % PT with INR INR PTT (Actin FS) 24.4 L Sodium 139 Potassium 3.5 Chloride 108 H Carbon Dioxide 23 Anion Gap 8 BUN 6 L Creatinine 0.4 L Creat Clearance w eGFR > 60 Random Glucose 97 Lactic Acid 0.9 Calcium 7.5 L Phosphorus 3.2 Magnesium 2.1 Total Bilirubin 0.3 AST 12 L ALT 36 Alkaline Phosphatase 69 Total Protein 5.7 L Albumin 2.6 L Beta HCG, Quant Urine Color Urine Appearance Urine pH Ur Specific [place] Urine Protein Urine Glucose (UA) Urine Ketones Urine Blood Urine Nitrite Urine Bilirubin Urine Urobilinogen Ur Leukocyte Esterase Urine WBC (Auto) Urine RBC (Auto) Ur Epithelial Cells Urine Bacteria Hyaline Casts Urine Mucus Blood Type Antibody Screen Active Medications Generic Name Dose Route Start Last Admin Trade Name Freq PRN Reason Stop Dose Admin Acetaminophen 650 mg 05/06/17 00:48 05/06/17 00:59 Tylenol - PO 650 mg Q6H PRN Administration FEVER Clindamycin Phosphate 900 mg in 50 mls @ 100 mls/hr 05/06/17 02:00 05/06/17 10:05 Cleocin 900 Mg Premix Ivpb - IVPB 100 mls/hr Q8H-IV JON Administration Methylergonovine Maleate 0.2 mg 05/06/17 06:00 05/06/17 11:30 Methergine - PO 05/06/17 18:01 0.2 mg Q6HPO JON Administration Morphine Sulfate 2 mg 05/06/17 00:48 Morphine Sulfate IVPUSH Q4H PRN PAIN LEVEL 6-10 ASSESSMENT/PLAN: Pt is a 36 yo F presenting with worsening lower abdominal pain and vaginal bleed since having an elective 2 weeks ago. #Sepsis due to Endometritis and UTI -afebrile -leukocytosis trending down -GI on board: not concerned for retained products of conception. -No indication for repeat U/S at this time per INVENTORY TAKER -Methergine 0.2 q6H -ID consulted. -Cont. Clindamycin, Gentamicin Day 1 -F/u CX #Anemia -likely due to acute blood loss from vaginal bleeding -on methorgine -repeat CBC -Iron studies -Will monitor #DVT PPX -EAM Visit type - Emergency Visit Emergency Visit: Yes ED Registration Date: 05/06/17 Care time: The patient presented to the Emergency Department on the above date and was hospitalized for further evaluation of their emergent condition. - New Patient This patient is new to me today: Yes Date on this admission: 05/06/17 - Critical Care Critical Care patient: No
--- NOTE | 2017-05-06 17:19 | CON.ID ---
Consult Consult Specialty:: Infectious Disease Referred by:: Primary Team Reason for Consultation:: Endometritis, UTI - History of Present Illness History of Present Illness: 36 year old F with no pmh presented with lower abdominal pain and vaginal bleeding. Symptoms began two weeks ago after .Patient had a D&c at a different hospital at 8 weeks gestation. She began having abdominal pain and vaginal bleeding the day after that is increased in quantity over the past three days with clots. The abdominal pain is lower radiating to her back. She endorses chills and nausea. She denies fevers, chest pain, palpitations, and leg swelling. She was screened for sexually transmitted infections during her hospital course for her , which she was told was negative. - History Source History Provided By: Patient Limitations to Obtaining History: No Limitations - Past Medical History ...LMP: 04/22/17 ...: No - Past Surgical History Past Surgical History: Yes: None - Alcohol/Substance Use Hx Alcohol Use: No - Smoking History Smoking history: Never smoked - Social History History of Recent Travel: No Home Medications - Allergies Allergies/Adverse Reactions: Allergies Allergy/AdvReac Type Severity Reaction Status Date / Time No Known Allergies Allergy Verified 05/05/17 14:46 - Home Medications Home Medications: Ambulatory Orders NK [No Known Home Medication] 05/05/17 Review of Systems - Review of Systems Constitutional: reports: Chills. denies: Diaphoresis, Fever Cardiovascular: reports: No Symptoms Respiratory: reports: No Symptoms Gastrointestinal: reports: Abdominal Pain, Nausea Genitourinary: reports: Vaginal Bleeding Physical Exam Vital Signs: Vital Signs Temperature 98.2 F 05/06/17 14:16 Pulse Rate 83 05/06/17 14:16 Respiratory Rate 18 05/06/17 14:16 Blood Pressure 96/54 05/06/17 14:16 O2 Sat by Pulse Oximetry (%) 99 05/06/17 00:45 Constitutional: Yes: Well Nourished, No Distress, Calm, Other (Awake alert and oriented times three) Eyes: Yes: Conjunctiva Clear, EOM Intact HENT: Yes: Atraumatic, Normocephalic Neck: Yes: Supple, Trachea Midline Cardiovascular: Yes: Regular Rate and Rhythm, S1, S2 Respiratory: Yes: Regular, CTA Bilaterally Gastrointestinal: Yes: Normal Bowel Sounds, Soft, Tenderness (Lower quadrant above bladder below umbilicus) Edema: No Labs: CBC, BMP 05/06/17 06:00 05/06/17 06:00 Imaging - Results Ultrasound: Report Reviewed Assessment/Plan Assessment: 1. Post Endometritis 2. Urinary tract infection Plan: 1. Switch patient to Zosyn 3.375 g Q8 hours. 2. Can Discontinue Gentamicin and Clindamycin 3. F/u Cultures
[2017-05-06] MEDS: PIPERACILLIN/TAZOB 3.375 GM 3.375 GM in DEXTROSE 5%-WATER - 50 ML IVPB SCH (18:02)
[2017-05-06 18:49] LABS: HEMATOCRIT 24.7 % (32.4-45.2); HEMOGLOBIN 8.6 GM/dL (10.7-15.3); MCH 32.2 pg (25.7-33.7); MCHC 34.8 g/dl (32.0-36.0); MEAN CELL VOLUME 92.5 fl (80-96); MEAN PLT VOLUME 8.3 fl (7.5-11.1); PLATELET COUNT 317 K/MM3 (134-434); RBC 2.67 M/mm3 (3.60-5.2)
[2017-05-07] MEDS: PIPERACILLIN/TAZOB 3.375 GM 3.375 GM in DEXTROSE 5%-WATER - 50 ML IVPB SCH ×3 (01:43→17:54)
[2017-05-07 08:01] LABS: HEMATOCRIT 23.3 % (32.4-45.2); MCH 31.4 pg (25.7-33.7); MCHC 34.3 g/dl (32.0-36.0); MEAN CELL VOLUME 91.6 fl (80-96); MEAN PLT VOLUME 7.9 fl (7.5-11.1); PLATELET COUNT 295 K/MM3 (134-434); RBC 2.54 M/mm3 (3.60-5.2); RDW 13.1 % (11.6-15.6); WHITE BLOOD COUNT 13.5 K/mm3 (4.0-10.0)
[2017-05-07 08:20] LABS: ALBUMIN 2.6 g/dl (3.4-5.0); BLOOD UREA NITROGEN 6 mg/dL (7-18); CALCIUM 7.7 mg/dL (8.5-10.1); CHLORIDE 110 mmol/L (98-107); CREATININE 0.4 mg/dL (0.55-1.02); GLUCOSE,RANDOM 90 mg/dL (74-106); POTASSIUM 3.8 mmol/L (3.5-5.1); SGOT/AST 11 U/L (15-37); SODIUM 141 mmol/L (136-145)
[2017-05-07 08:25] LABS: ALK PHOS 65 U/L (45-117); ANION GAP 9 (8-16); BILIRUBIN,TOTAL 0.2 mg/dL (0.2-1.0); CO2 22 mmol/L (21-32); SGPT/ALT 26 U/L (12-78); TOT PROT 5.8 g/dl (6.4-8.2)
--- NOTE | 2017-05-07 10:49 | PN ---
Teaching Attending Note Name of Resident: Frederic Starkey ATTENDING PHYSICIAN STATEMENT I saw and evaluated the patient. I reviewed the resident's note and discussed the case with the resident. I agree with the resident's findings and plan as documented. SUBJECTIVE:some abdominal discomfort yesterday while showering but overall improved. more vaginal bleeding yesterday. changed pad 3x yesterday and only once today. denies CP, SOb, fever, chills, LOC, dizynnes or lightheadedness OBJECTIVE: Last Vital Signs Temp Pulse Resp BP Pulse Ox 98.4 F 78 18 98/56 99 05/06/17 22:00 05/06/17 22:00 05/06/17 22:00 05/06/17 22:00 05/06/17 00:45 General NAD CV S1 S2 RRR no murmur/rub/gallop Lungs CTA B/L no wheezing/rales/rhonchi Abdomen soft +suprapubic and LLQ tenderness no rebound or guarding. ASSESSMENT AND PLAN: 36yo F with no significant PMH but with recent elective 2 weeks ago presenting with vaginal bleeding and dysuria 1. Sepsis due to endometriosis and UTI- afebrile. slight uptrend in leukocytosis. UCx with pending organism. Abx switched to zosyn day 2 of total abx. on methorgine. no interventions at this time. 2. Acute blood loss anemia- due to vaginal bleeding. increase in bleeding. slight trend down today. will repeat in the afternoon if continues to trend down will give PRBC. has never received blood product in the past. iron stuides pending. 3. DVT ppx- EAM
--- NOTE | 2017-05-07 11:06 | PN ---
Physical Exam: SUBJECTIVE: Patient seen and examined. No acute events overnight. Patient still complains of suprapubic abdominal pain which has decreased since yesterday. She did notice more vaginal bleeding today compared to yesterday. Patient denies dizziness, chest pain, nausea, vomiting, fevers, chills, lightheadedness. OBJECTIVE: Vital Signs Period Temp Pulse Resp BP Sys/Dodson Pulse Ox Last 24 Hr 98.2 F-99 F 76-83 18-18 89-98/54-56 GENERAL: The patient is awake, alert, and fully oriented, in no acute distress. EYES: PERRL, extraocular movements intact, sclera anicteric, conjunctiva clear. ENT: oropharynx clear without exudates, moist mucous membranes. NECK: supple. LUNGS: Breath sounds equal, clear to auscultation bilaterally, no wheezes, no crackles, no accessory muscle use. HEART: Regular rate and rhythm, S1, S2 without murmur, rub or gallop. ABDOMEN: suprapubic tenderness to palpation, no rebound or guarding, +BS, nondistended EXTREMITIES: 2+ pulses, warm, well-perfused, no edema. NEUROLOGICAL: Cranial nerves II through XII grossly intact. Normal speech, gait not observed. PSYCH: Normal mood, normal affect. SKIN: Warm, dry, normal turgor, no rashes or lesions noted Laboratory Results - last 24 hr 05/06/17 05/07/17 05/07/17 17:00 06:00 06:00 WBC 10.0 13.5 H D RBC 2.67 L 2.54 L Hgb 8.6 L 8.0 L Hct 24.7 L 23.3 L MCV 92.5 91.6 MCH 32.2 31.4 MCHC 34.8 34.3 RDW 13.0 13.1 Plt Count 317 295 MPV 8.3 7.9 Sodium 141 Potassium 3.8 Chloride 110 H Carbon Dioxide 22 Anion Gap 9 BUN 6 L Creatinine 0.4 L Creat Clearance w eGFR > 60 Random Glucose 90 Calcium 7.7 L Ferritin 10.482 Total Bilirubin 0.2 D AST 11 L ALT 26 Alkaline Phosphatase 65 Total Protein 5.8 L Albumin 2.6 L Active Medications Generic Name Dose Route Start Last Admin Trade Name Freq PRN Reason Stop Dose Admin Acetaminophen 650 mg 05/06/17 00:48 05/06/17 16:56 Tylenol - PO 650 mg Q6H PRN Administration FEVER Piperacillin Sod/Tazobactam 50 mls @ 100 mls/hr 05/06/17 18:00 05/07/17 09:09 Sod 3.375 gm/ Dextrose IVPB 100 mls/hr Q8H-IV JON Administration Protocol Morphine Sulfate 2 mg 05/06/17 00:48 Morphine Sulfate IVPUSH Q4H PRN PAIN LEVEL 6-10 ASSESSMENT/PLAN: Pt is a 36 yo F presenting with worsening lower abdominal pain and vaginal bleed since having an elective 2 weeks ago. #Sepsis due to Endometritis and UTI -afebrile -13.5 WBC, 10 yesterday -GI on board: not concerned for retained products of conception. -No indication for repeat U/S at this time per CATALOGUE AND SPECIAL PRODUCTS MANAGER -d/c Methergine -ID consulted. -Started Zosyn today q8h. (IV abx day 2) -Held Clindamycin, Gentamicin Day 1 -F/u CX #Anemia -likely due to acute blood loss from vaginal bleeding, increased today -repeat CBC, will give blood if continues to decrease -has never received blood in the past -Iron studies pending -Will monitor #DVT PPX -EAM Visit type - Emergency Visit Emergency Visit: Yes ED Registration Date: 05/06/17 Care time: The patient presented to the Emergency Department on the above date and was hospitalized for further evaluation of their emergent condition. - New Patient This patient is new to me today: No - Critical Care Critical Care patient: No
[2017-05-07 12:52] LABS: HEMATOCRIT 25.7 % (32.4-45.2); HEMOGLOBIN 8.8 GM/dL (10.7-15.3); MCH 31.8 pg (25.7-33.7); MCHC 34.2 g/dl (32.0-36.0); MEAN CELL VOLUME 92.8 fl (80-96); MEAN PLT VOLUME 7.8 fl (7.5-11.1); PLATELET COUNT 368 K/MM3 (134-434); RBC 2.77 M/mm3 (3.60-5.2); RDW 13.2 % (11.6-15.6); WHITE BLOOD COUNT 12.2 K/mm3 (4.0-10.0)
--- NOTE | 2017-05-07 13:25 | PN ---
Addendum entered and electronically signed by Carlos Frye, RESIDENT 05/08/17 09:55: Physical Examination: Constitutional: Yes: Well Nourished, No Distress, Calm, Other (Awake alert and oriented times three) Eyes: Yes: Conjunctiva Clear, EOM Intact HENT: Yes: Atraumatic, Normocephalic Neck: Yes: Supple, Trachea Midline Cardiovascular: Yes: Regular Rate and Rhythm, S1, S2 Respiratory: Yes: Regular, CTA Bilaterally Gastrointestinal: Yes: Normal Bowel Sounds, Soft, Tenderness (Lower quadrant above bladder below umbilicus) Edema: No Original Note: Progress Note, Physician History of Present Illness: No acute events overnight. Pain is mildly improved. Patient with increased vaginal bleeding. - Current Medication List Current Medications: Active Medications Acetaminophen (Tylenol -) 650 mg PO Q6H PRN PRN Reason: FEVER Last Admin: 05/06/17 16:56 Dose: 650 mg Piperacillin Sod/Tazobactam (Sod 3.375 gm/ Dextrose) 50 mls @ 100 mls/hr IVPB Q8H-IV JON PRN Reason: Protocol Last Admin: 05/07/17 09:09 Dose: 100 mls/hr Morphine Sulfate (Morphine Sulfate) 2 mg IVPUSH Q4H PRN PRN Reason: PAIN LEVEL 6-10 - Objective Vital Signs: Vital Signs Temperature 98.4 F 05/06/17 22:00 Pulse Rate 78 05/06/17 22:00 Respiratory Rate 18 05/06/17 22:00 Blood Pressure 98/56 05/06/17 22:00 O2 Sat by Pulse Oximetry (%) 99 05/06/17 00:45 Labs: CBC, BMP 05/07/17 12:45 05/07/17 06:00 INR, PTT INR 1.03 (0.82-1.09) 05/06/17 06:00 <Carlos Frye - Last Filed: 05/07/17 13:30> - Current Medication List Current Medications: Active Medications Acetaminophen (Tylenol -) 650 mg PO Q6H PRN PRN Reason: FEVER Last Admin: 05/08/17 07:32 Dose: 650 mg Piperacillin Sod/Tazobactam (Sod 3.375 gm/ Dextrose) 50 mls @ 100 mls/hr IVPB Q8H-IV JON PRN Reason: Protocol Last Admin: 05/08/17 09:35 Dose: 100 mls/hr Morphine Sulfate (Morphine Sulfate) 2 mg IVPUSH Q4H PRN PRN Reason: PAIN LEVEL 6-10 - Objective Vital Signs: Vital Signs Temperature 98.7 F 05/08/17 09:59 Pulse Rate 80 05/08/17 09:59 Respiratory Rate 20 05/08/17 09:59 Blood Pressure 107/73 05/08/17 09:59 O2 Sat by Pulse Oximetry (%) 99 05/06/17 00:45 Labs: CBC, BMP 05/08/17 07:45 05/08/17 07:45 INR, PTT INR 1.03 (0.82-1.09) 05/06/17 06:00 <Haroon Rosas - Last Filed: 05/08/17 14:09> Assessment/Plan Assessment: 1. Post Endometritis 2. Urinary tract infection, Group D strep Plan: 1. Continue Zosyn 3.375 g q8h. Can switch to PO augmentin tomorrow likely 2. F/u Cultures <Carlos Frye - Last Filed: 05/07/17 13:30> Pt evaluated with resident. Agree with plan Alicia Rosas MD <Haroon Rosas - Last Filed: 05/08/17 14:09>
[2017-05-08] MEDS: PIPERACILLIN/TAZOB 3.375 GM 3.375 GM in DEXTROSE 5%-WATER - 50 ML IVPB SCH ×3 (02:12→17:45)
[2017-05-08] MEDS: ACETAMINOPHEN 325 MG TABLET (FP) PO PRN ×3 (07:32→20:34)
[2017-05-08 08:19] LABS: HEMATOCRIT 25.2 % (32.4-45.2); HEMOGLOBIN 8.6 GM/dL (10.7-15.3); MCH 31.8 pg (25.7-33.7); MCHC 34.3 g/dl (32.0-36.0); MEAN CELL VOLUME 92.7 fl (80-96); PLATELET COUNT 380 K/MM3 (134-434); RBC 2.71 M/mm3 (3.60-5.2); RDW 13.1 % (11.6-15.6); WHITE BLOOD COUNT 12.3 K/mm3 (4.0-10.0)
[2017-05-08 09:02] LABS: ANION GAP 9 (8-16); BLOOD UREA NITROGEN 8 mg/dL (7-18); CALCIUM 8.5 mg/dL (8.5-10.1); CHLORIDE 104 mmol/L (98-107); CO2 24 mmol/L (21-32); CREATININE 0.4 mg/dL (0.55-1.02); GLUCOSE,RANDOM 86 mg/dL (74-106); POTASSIUM 3.9 mmol/L (3.5-5.1); SODIUM 137 mmol/L (136-145)
--- NOTE | 2017-05-08 09:56 | PN ---
Progress Note, Physician History of Present Illness: No acute events overnight. Pain is worse today. Patient with increased bleeding and clots. Per RN, may go for D&C. Denies fevers, chills, dysuria. - Current Medication List Current Medications: Active Medications Acetaminophen (Tylenol -) 650 mg PO Q6H PRN PRN Reason: FEVER Last Admin: 05/08/17 07:32 Dose: 650 mg Piperacillin Sod/Tazobactam (Sod 3.375 gm/ Dextrose) 50 mls @ 100 mls/hr IVPB Q8H-IV JON PRN Reason: Protocol Last Admin: 05/08/17 09:35 Dose: 100 mls/hr Morphine Sulfate (Morphine Sulfate) 2 mg IVPUSH Q4H PRN PRN Reason: PAIN LEVEL 6-10 - Objective Vital Signs: Vital Signs Temperature 98.4 F 05/07/17 21:45 Pulse Rate 76 05/07/17 21:45 Respiratory Rate 20 05/07/17 21:45 Blood Pressure 91/50 05/07/17 21:45 O2 Sat by Pulse Oximetry (%) 99 05/06/17 00:45 Constitutional: Yes: Well Nourished, No Distress, Calm, Other (Awake alert and oriented times three) Eyes: Yes: Conjunctiva Clear, EOM Intact HENT: Yes: Atraumatic, Normocephalic Neck: Yes: Supple, Trachea Midline Cardiovascular: Yes: Regular Rate and Rhythm, S1, S2 Respiratory: Yes: Regular, CTA Bilaterally Gastrointestinal: Yes: Normal Bowel Sounds, Soft, Tenderness (Lower quadrant above bladder below umbilicus) Edema: No Labs: CBC, BMP 05/08/17 07:45 05/08/17 07:45 INR, PTT INR 1.03 (0.82-1.09) 05/06/17 06:00 Microbiology 05/06/17 09:30 Blood Culture - Preliminary Blood - Peripheral Venous NO GROWTH OBTAINED AFTER 48 HOURS, INCUBATION TO CONTINUE FOR 3 DAYS. 05/06/17 10:00 Urine Culture - Preliminary Urine - Urine Clean Catch Enterococcus Faecalis 05/06/17 08:00 Blood Culture - Preliminary Blood - Peripheral Venous NO GROWTH OBTAINED AFTER 48 HOURS, INCUBATION TO CONTINUE FOR 3 DAYS. 05/05/17 17:30 Urine Culture - Final Urine - Urine Clean Catch NO GROWTH OBTAINED Assessment/Plan Assessment: 1. Post Endometritis 2. Urinary tract infection, Group D strep Plan: 1. Continue Zosyn 3.375 g q8h. 2. For D&C tomorrow AM
--- NOTE | 2017-05-08 11:52 | PN ---
Teaching Attending Note Name of Resident: Frederic Starkey ATTENDING PHYSICIAN STATEMENT I saw and evaluated the patient. I reviewed the resident's note and discussed the case with the resident. I agree with the resident's findings and plan as documented. SUBJECTIVE:c/o abdominal cramping worsening over the past 24H, continues to have intermittent vaginal bleeding. denies CP, SOB, fever, chills, N/V/C/D OBJECTIVE: Last Vital Signs Temp Pulse Resp BP Pulse Ox 98.7 F 80 20 107/73 99 05/08/17 09:59 05/08/17 09:59 05/08/17 09:59 05/08/17 09:59 05/06/17 00:45 General NAD Abdomen soft +suprapubic and LLQ tenderness no rebound or guarding. ASSESSMENT AND PLAN: 36yo F with no significant PMH but with recent elective 2 weeks ago presenting with vaginal bleeding and dysuria 1. Sepsis due to endometriosis and UTI- afebrile. leukocytosis stable. on ZOsyn day 3. ID on board 2. Acute blood loss anemia- due to vaginal bleeding from D&C. requested WATCH ENGINEER to re-evaluate. may require repeat D&C. Hgb has been stable no indication for txn at this time. iron stuides pending. 3. DVT ppx- EAM
--- NOTE | 2017-05-08 12:25 | PN ---
Physical Exam: SUBJECTIVE: Patient seen and examined. Says her cramping, abdominal pain is worse today and noticed more bleeding. She changed her pad 4-5 times since waking up. She denies dizziness, nausea, vomiting, chest pain, sob. OBJECTIVE: Vital Signs Period Temp Pulse Resp BP Sys/Dodson Pulse Ox Last 24 Hr 98.3 F-98.7 F 76-85 18-20 91-107/50-86 GENERAL: The patient is awake, alert, and fully oriented, in no acute distress. EYES: PERRL, extraocular movements intact, sclera anicteric, conjunctiva clear. ENT: oropharynx clear without exudates, moist mucous membranes. NECK: supple. LUNGS: Breath sounds equal, clear to auscultation bilaterally, no wheezes, no crackles, no accessory muscle use. HEART: Regular rate and rhythm, S1, S2 without murmur, rub or gallop. ABDOMEN: suprapubic tenderness to palpation, no rebound or guarding, +BS, nondistended EXTREMITIES: 2+ pulses, warm, well-perfused, no edema. NEUROLOGICAL: Cranial nerves II through XII grossly intact. Normal speech, gait not observed. PSYCH: Normal mood, normal affect. SKIN: Warm, dry, normal turgor, no rashes or lesions noted Laboratory Results - last 24 hr 05/07/17 05/08/17 05/08/17 12:45 07:45 07:45 WBC 12.2 H 12.3 H RBC 2.77 L 2.71 L Hgb 8.8 L 8.6 L Hct 25.7 L 25.2 L MCV 92.8 92.7 MCH 31.8 31.8 MCHC 34.2 34.3 RDW 13.2 13.1 Plt Count 368 D 380 MPV 7.8 8.0 Sodium 137 Potassium 3.9 Chloride 104 Carbon Dioxide 24 Anion Gap 9 BUN 8 Creatinine 0.4 L Random Glucose 86 Calcium 8.5 Active Medications Generic Name Dose Route Start Last Admin Trade Name Freq PRN Reason Stop Dose Admin Acetaminophen 650 mg 05/06/17 00:48 05/08/17 07:32 Tylenol - PO 650 mg Q6H PRN Administration FEVER Piperacillin Sod/Tazobactam 50 mls @ 100 mls/hr 05/06/17 18:00 05/08/17 09:35 Sod 3.375 gm/ Dextrose IVPB 100 mls/hr Q8H-IV JON Administration Protocol Morphine Sulfate 2 mg 05/06/17 00:48 Morphine Sulfate IVPUSH Q4H PRN PAIN LEVEL 6-10 ASSESSMENT/PLAN: Pt is a 36 yo F presenting with worsening lower abdominal pain and vaginal bleed since having an elective 2 weeks ago. #Sepsis due to Endometritis and UTI -afebrile -leukocytosis stable -OBGYN on board: D&C planned for tomorrow. -No indication for repeat U/S at this time per [facility] -d/c Methergine -ID consulted. -Cont. Zosyn today q8h. (IV abx day 3) -E. Faecalis in urine. newell-sensitive #Anemia -likely due to acute blood loss from vaginal bleeding, increased today -Iron studies pending -Will monitor #DVT PPX -EAM Visit type - Emergency Visit Emergency Visit: Yes ED Registration Date: 05/06/17 Care time: The patient presented to the Emergency Department on the above date and was hospitalized for further evaluation of their emergent condition. - New Patient This patient is new to me today: No - Critical Care Critical Care patient: No
--- NOTE | 2017-05-08 13:41 | PN ---
Teaching Attending Note Name of Resident: Carlos Frye ATTENDING PHYSICIAN STATEMENT I saw and evaluated the patient. I reviewed the resident's note and discussed the case with the resident. I agree with the resident's findings and plan as documented. SUBJECTIVE: C/O increased lower abdominal pain, vaginal bleeding No c/o fever/chills WBC improved OBJECTIVE: cor S1S2 Lungs clear Abdomen soft, + lower abdominal tenderness ASSESSMENT AND PLAN: Endometritis S/P ETOP Enterococcal UTI Continue empiric zosyn For D&C
--- NOTE | 2017-05-08 22:29 | PN ---
Progress Note (short form) - Note Progress Note: Patient seen and evaluated, she c/o abdominal cramps and vaginal bleeding. She admits to passing large clots. She's afebrile but there's persistent leukocytosis despite IV antibiotic. Consider suction D&C in am NPO after midnight
[2017-05-09 00:07] LABS: SERUM IRON SATURATION 6 % (15-55); TOTAL IRON BINDING CAPACITY 381 ug/dL (250-450); UIBC 360 ug/dL (131-425)
[2017-05-09] MEDS: PIPERACILLIN/TAZOB 3.375 GM 3.375 GM in DEXTROSE 5%-WATER - 50 ML IVPB SCH ×3 (01:21→17:40)
[2017-05-09 06:06] LABS: TRANSFERRIN 327 mg/dL (200-370)
[2017-05-09 07:50] LABS: HEMATOCRIT 22.6 % (32.4-45.2); HEMOGLOBIN 7.8 GM/dL (10.7-15.3); MCH 31.8 pg (25.7-33.7); MCHC 34.4 g/dl (32.0-36.0); MEAN CELL VOLUME 92.6 fl (80-96); MEAN PLT VOLUME 7.7 fl (7.5-11.1); PLATELET COUNT 360 K/MM3 (134-434); RBC 2.44 M/mm3 (3.60-5.2); RDW 13.1 % (11.6-15.6); WHITE BLOOD COUNT 12.2 K/mm3 (4.0-10.0)
[2017-05-09] MEDS ORDERED: PROPOFOL 20 ML ONE (07:59)
[2017-05-09] MEDS ORDERED: SUCCINYLCHOLINE CHLORIDE 200 MG/10 ML VIAL ONE (07:59)
[2017-05-09] MEDS ORDERED: DEXAMETHASONE SOD PHOSPHATE 4 MG/1 ML VIAL ONE (08:14)
[2017-05-09] MEDS ORDERED: KETOROLAC TROMETHAMINE 30 MG/1 ML VIAL ONE (08:14)
[2017-05-09] MEDS ORDERED: LIDOCAINE HCL/PF 2% SDV 5ML VIAL ONE (08:14)
--- NOTE | 2017-05-09 08:23 | OP ---
Operative Note - Note: Operative Date: 05/09/17 Pre-Operative Diagnosis: Incomplete Operation: Suction D&C Findings: Product of conception Post-Operative Diagnosis: Same as Pre-op Surgeon: Margi Restrepo Anesthesia: General Specimens Removed: Product of conception Estimated Blood Loss (mls): 100 Operative Report Dictated: Yes
[2017-05-09] MEDS ORDERED: ONDANSETRON 4 MG/2 ML VIAL IVPUSH PRN (08:36)
[2017-05-09 08:38] LABS: ANION GAP 9 (8-16); BLOOD UREA NITROGEN 5 mg/dL (7-18); CALCIUM 8.2 mg/dL (8.5-10.1); CHLORIDE 108 mmol/L (98-107); CO2 24 mmol/L (21-32); CREATININE 0.5 mg/dL (0.55-1.02); GLUCOSE,RANDOM 87 mg/dL (74-106); POTASSIUM 3.9 mmol/L (3.5-5.1); SODIUM 141 mmol/L (136-145)
[2017-05-09] MEDS ORDERED: LACTATED RINGERS SOLUTION 1,000 ML IV SCH ×2 (08:45→08:52)
--- NOTE | 2017-05-09 10:36 | PN ---
Teaching Attending Note Name of Resident: Frederic Starkey ATTENDING PHYSICIAN STATEMENT I saw and evaluated the patient. I reviewed the resident's note and discussed the case with the resident. I agree with the resident's findings and plan as documented. SUBJECTIVE:pain has resolved since repeat D&C this AM. was having a lot of cramping yesterday with passive of multiple blood clots. denies Cp, SOB, fever, chills, N/V/C/D OBJECTIVE: Last Vital Signs Temp Pulse Resp BP Pulse Ox 98.9 F 80 20 101/47 98 05/09/17 09:20 05/09/17 09:20 05/09/17 09:20 05/09/17 09:20 05/09/17 09:20 General NAD Abdomen soft NT/ND no rebound or guarding ASSESSMENT AND PLAN: 36yo F with no significant PMH but with recent elective 2 weeks ago presenting with vaginal bleeding and dysuria 1. Sepsis due to endometriosis and UTI- afebrile. leukocytosis stable. on ZOsyn day 4. will speak with ID about transitioning to po in the AM. ID on board 2. Acute blood loss anemia- due to vaginal bleeding from D&C. underwent repeat D &C this AM. with resolution of pain. will transfused 1 unit PRBC to continued bleeding and drop in Hgb. +iron def anemia. start iron supplements. educated on side effects including constipation. check post txn PRBC. will need repeat iron studies in 3 months. 3. DVT ppx- EAM 4. will monitor overnight. if pt remains afebrile, and hgb stable possible d/c in the AM
--- NOTE | 2017-05-09 11:15 | PN ---
Physical Exam: SUBJECTIVE: Patient seen and examined. Overnight patient had worsening vaginal bleeding with 4-5 pads changed. S/P D&C this morning. Patient says she feels well with no abdominal pain, dizziness, chest pain, diarrhea, nausea, and vomiting. OBJECTIVE: Vital Signs Period Temp Pulse Resp BP Sys/Dodson Pulse Ox Last 24 Hr 98.3 F-99.3 F 80-91 12-20 92-123/47-72 98-100 GENERAL: The patient is awake, alert, and fully oriented, in no acute distress. EYES: PERRL, extraocular movements intact, sclera anicteric, conjunctiva clear. ENT: oropharynx clear without exudates, moist mucous membranes. NECK: supple. LUNGS: Breath sounds equal, clear to auscultation bilaterally, no wheezes, no crackles, no accessory muscle use. HEART: Regular rate and rhythm, S1, S2 without murmur, rub or gallop. ABDOMEN: NT, ND, +BS, no rebound EXTREMITIES: 2+ pulses, warm, well-perfused, no edema. NEUROLOGICAL: Cranial nerves II through XII grossly intact. Normal speech, gait not observed. PSYCH: Normal mood, normal affect. SKIN: Warm, dry, normal turgor, no rashes or lesions noted Laboratory Results - last 24 hr 05/07/17 05/09/17 05/09/17 06:00 07:25 07:25 WBC 12.2 H RBC 2.44 L Hgb 7.8 L Hct 22.6 L MCV 92.6 MCH 31.8 MCHC 34.4 RDW 13.1 Plt Count 360 MPV 7.7 Sodium 141 Potassium 3.9 Chloride 108 H Carbon Dioxide 24 Anion Gap 9 BUN 5 L Creatinine 0.5 L Random Glucose 87 Calcium 8.2 L Iron 21 L TIBC 381 Iron Saturation 6 L Transferrin 327 Blood Type Antibody Screen Crossmatch 05/09/17 07:25 WBC RBC Hgb Hct MCV MCH MCHC RDW Plt Count MPV Sodium Potassium Chloride Carbon Dioxide Anion Gap BUN Creatinine Random Glucose Calcium Iron TIBC Iron Saturation Transferrin Blood Type O POSITIVE Antibody Screen Negative Crossmatch See Detail Active Medications Generic Name Dose Route Start Last Admin Trade Name Freq PRN Reason Stop Dose Admin Acetaminophen 650 mg 05/09/17 08:52 Tylenol - PO Q6H PRN FEVER Lactated Ringer's 1,000 mls @ 125 mls/hr 05/09/17 08:52 Lactated Ringers Solution IV ASDIR JON Piperacillin Sod/Tazobactam 50 mls @ 100 mls/hr 05/09/17 10:00 05/09/17 10:03 Sod 3.375 gm/ Dextrose IVPB 100 mls/hr Q8H-IV JON Administration Protocol ASSESSMENT/PLAN: Pt is a 36 yo F presenting with worsening lower abdominal pain and vaginal bleed since having an elective 2 weeks ago. #Sepsis due to Endometritis and UTI -afebrile -leukocytosis stable -OBGYN on board, follow reccs -S/P D&C 05/09 -ID on board -Cont. Zosyn today q8h. (IV abx day 4) -E. Faecalis in urine. newell-sensitive #Acute blood loss anemia -Likely from vaginal bleeding from D&C. -Hgb down to 7.8 today -Tranfuse 1 PRBC today -S/p D&C this morning -Iron deficient. -Start Iron supplements BID. Patient educated on side effects including constipation and darkening of stools. -Repeat iron studies in 3 months outpatient. -patient continues to have vaginal bleeding -Will follow H&H #DVT PPX -EAM Visit type - Emergency Visit Emergency Visit: Yes ED Registration Date: 05/06/17 Care time: The patient presented to the Emergency Department on the above date and was hospitalized for further evaluation of their emergent condition. - New Patient This patient is new to me today: No - Critical Care Critical Care patient: No
[2017-05-09] MEDS: FERROUS SO4 325 MG TABLET (FP) PO SCH ×2 (11:30→22:54)
--- NOTE | 2017-05-09 17:09 | PN ---
Progress Note, Physician History of Present Illness: No acute events overnight. Patient went for D&C today. Pain is resolving. Denies fever, chills, dysuria. - Current Medication List Current Medications: Active Medications Acetaminophen (Tylenol -) 650 mg PO Q6H PRN PRN Reason: FEVER Ferrous Sulfate (Feosol -) 325 mg PO BID JON Last Admin: 05/09/17 11:30 Dose: 325 mg Lactated Ringer's (Lactated Ringers Solution) 1,000 mls @ 125 mls/hr IV ASDIR JON Piperacillin Sod/Tazobactam (Sod 3.375 gm/ Dextrose) 50 mls @ 100 mls/hr IVPB Q8H-IV JON PRN Reason: Protocol Last Admin: 05/09/17 10:03 Dose: 100 mls/hr - Objective Vital Signs: Vital Signs Temperature 98.7 F 05/09/17 13:40 Pulse Rate 94 H 05/09/17 13:40 Respiratory Rate 20 05/09/17 13:40 Blood Pressure 117/74 05/09/17 13:40 O2 Sat by Pulse Oximetry (%) 98 05/09/17 09:20 Constitutional: Yes: Well Nourished, No Distress, Calm, Other (Awake alert and oriented times three) Eyes: Yes: Conjunctiva Clear, EOM Intact HENT: Yes: Atraumatic, Normocephalic Neck: Yes: Supple, Trachea Midline Cardiovascular: Yes: Regular Rate and Rhythm, S1, S2 Respiratory: Yes: Regular, CTA Bilaterally Gastrointestinal: Yes: Normal Bowel Sounds, Soft, Tenderness (Lower quadrant above bladder below umbilicus) Edema: No Labs: CBC, BMP 05/09/17 07:25 05/09/17 07:25 INR, PTT INR 1.03 (0.82-1.09) 05/06/17 06:00 Assessment/Plan Assessment: 1. Post Endometritis 2. Urinary tract infection, Group D strep Plan: 1. Continue Zosyn 3.375 g q8h for one more day.Can transition to PO tomorrow
[2017-05-09] MEDS: ACETAMINOPHEN 325 MG TABLET (FP) PO PRN (17:44)
[2017-05-09 18:46] LABS: HEMATOCRIT 25.8 % (32.4-45.2); HEMOGLOBIN 8.9 GM/dL (10.7-15.3); MCH 31.2 pg (25.7-33.7); MCHC 34.5 g/dl (32.0-36.0); MEAN CELL VOLUME 90.6 fl (80-96); MEAN PLT VOLUME 8.2 fl (7.5-11.1); PLATELET COUNT 396 K/MM3 (134-434); RBC 2.84 M/mm3 (3.60-5.2); RDW 13.7 % (11.6-15.6)
--- NOTE | 2017-05-09 19:03 | OP ---
DATE OF OPERATION: 05/09/2017 PREOPERATIVE DIAGNOSIS: Incomplete . POSTOPERATIVE DIAGNOSIS: Incomplete . PROCEDURE: Suction dilation and curettage. SURGEON: Margi Restrepo M.D. ANESTHESIA: General under LMA. COMPLICATIONS: None. ESTIMATED BLOOD LOSS: 100 mL. PROCEDURE: Patient was taken to the operating room where general anesthesia was administered. Patient was then placed in lithotomy position. She was then prepped and draped in proper sterile fashion. A weighted speculum was placed in the vagina. The anterior lip of the cervix was grasped with a single-toothed tenaculum. There were a lot of blood clots noted in the vagina. Then a 10-mm suction curet was then gently introduced into the uterine cavity. The suction curet was then rotated to clear the uterus of all products of conception. Then sharp curettage was performed. The curet was reintroduced to clear the uterus of all remaining products of conception. Then the instruments were removed. The patient was taken out of lithotomy position. She was taken to PACU in stable condition. PATHOLOGY: Products of conception. Carmella [id number]
--- NOTE | 2017-05-09 19:17 | PN ---
Teaching Attending Note Name of Resident: Carlos Frye ATTENDING PHYSICIAN STATEMENT I saw and evaluated the patient. I reviewed the resident's note and discussed the case with the resident. I agree with the resident's findings and plan as documented. SUBJECTIVE: S/P D&C C/O lower abdominal discomfort, vaginal bleeding No fever/ chills Afebrile WBC WNL Blood c/s (-) OBJECTIVE: Non toxic Cor S1S2 Lungs clear Abdomen soft + lower abdominal tenderness ASSESSMENT AND PLAN: Endometritis S/P D&C S/P ETOP UTI If stable substitute po Augmentin 875mg bid x7d in am
[2017-05-10] MEDS: PIPERACILLIN/TAZOB 3.375 GM 3.375 GM in DEXTROSE 5%-WATER - 50 ML IVPB SCH ×2 (02:14→09:25)
[2017-05-10] MEDS: ACETAMINOPHEN 325 MG TABLET (FP) PO PRN (08:34)
[2017-05-10 08:44] LABS: HEMATOCRIT 22.9 % (32.4-45.2); HEMOGLOBIN 7.8 GM/dL (10.7-15.3); MCH 30.8 pg (25.7-33.7); MCHC 34.1 g/dl (32.0-36.0); MEAN CELL VOLUME 90.2 fl (80-96); MEAN PLT VOLUME 7.7 fl (7.5-11.1); PLATELET COUNT 349 K/MM3 (134-434); RBC 2.54 M/mm3 (3.60-5.2); WHITE BLOOD COUNT 12.8 K/mm3 (4.0-10.0)
[2017-05-10 09:03] LABS: ALBUMIN 2.7 g/dl (3.4-5.0); ALK PHOS 55 U/L (45-117); ANION GAP 10 (8-16); BILIRUBIN,TOTAL 0.2 mg/dL (0.2-1.0); BLOOD UREA NITROGEN 5 mg/dL (7-18); CHLORIDE 109 mmol/L (98-107); CO2 23 mmol/L (21-32); CREATININE 0.4 mg/dL (0.55-1.02); GLUCOSE,RANDOM 101 mg/dL (74-106); POTASSIUM 3.7 mmol/L (3.5-5.1); SGOT/AST 9 U/L (15-37); SGPT/ALT 18 U/L (12-78); SODIUM 142 mmol/L (136-145); TOT PROT 5.9 g/dl (6.4-8.2)
[2017-05-10] MEDS: FERROUS SO4 325 MG TABLET (FP) PO SCH (09:24)
[2017-05-10 14:35] LABS: HEMATOCRIT 24.7 % (32.4-45.2); HEMOGLOBIN 8.7 GM/dL (10.7-15.3); MCH 31.7 pg (25.7-33.7); MCHC 35.1 g/dl (32.0-36.0); MEAN CELL VOLUME 90.4 fl (80-96); MEAN PLT VOLUME 7.7 fl (7.5-11.1); PLATELET COUNT 418 K/MM3 (134-434); RBC 2.74 M/mm3 (3.60-5.2); RDW 13.8 % (11.6-15.6); WHITE BLOOD COUNT 10.5 K/mm3 (4.0-10.0)
[2017-05-10 15:05] VITALS: BP 104/63; PULSE 78; TEMP 99.4
--- NOTE | 2017-05-10 15:15 | PN ---
Progress Note (short form) - Note Progress Note: Anesthesiology 36 y.o. female POD#1 s/p D&C under GA. Pt. sitting-up, feels well. Pain well-controlled, denies n/v. VSS. No apparent anesthesia-related issues. 36 y.o. female with stable post-operative course. Continue management as per primary team.
--- NOTE | 2017-05-10 15:25 | DS ---
Physical Exam: SUBJECTIVE: Patient seen and examined. only mild vaginal spotting. cramping resolved. toerating diet. dneies CP, SOB, fever, chills, N/V/C?D OBJECTIVE: Vital Signs Period Temp Pulse Resp BP Sys/Dodson Pulse Ox Last 24 Hr 98.3 F-99.4 F 78-86 20-20 104-108/63-69 PHYSICAL EXAM GENERAL: The patient is awake, alert, and fully oriented, in no acute distress. HEAD: Normal with no signs of trauma. EYES: PERRL, extraocular movements intact, sclera anicteric, conjunctiva clear. ENT: Ears normal, nares patent, oropharynx clear without exudates, moist mucous membranes. NECK: Trachea midline, full range of motion, supple. LUNGS: Breath sounds equal, clear to auscultation bilaterally, no wheezes, no crackles, no accessory muscle use. HEART: Regular rate and rhythm, S1, S2 without murmur, rub or gallop. ABDOMEN: Soft, nontender, nondistended, normoactive bowel sounds, no guarding, no rebound, no hepatosplenomegaly, no masses. EXTREMITIES: 2+ pulses, warm, well-perfused, no edema. NEUROLOGICAL: Cranial nerves II through XII grossly intact. Normal speech, gait not observed. PSYCH: Normal mood, normal affect. SKIN: Warm, dry, normal turgor, no rashes or lesions noted. LABS Laboratory Results - last 24 hr 05/09/17 05/10/17 05/10/17 18:00 08:30 08:30 WBC 10.0 12.8 H RBC 2.84 L 2.54 L Hgb 8.9 L D 7.8 L D Hct 25.8 L 22.9 L MCV 90.6 90.2 MCH 31.2 30.8 MCHC 34.5 34.1 RDW 13.7 14.0 Plt Count 396 349 MPV 8.2 7.7 Sodium 142 Potassium 3.7 Chloride 109 H Carbon Dioxide 23 Anion Gap 10 BUN 5 L Creatinine 0.4 L Creat Clearance w eGFR > 60 Random Glucose 101 Calcium 8.0 L Total Bilirubin 0.2 AST 9 L ALT 18 Alkaline Phosphatase 55 Total Protein 5.9 L Albumin 2.7 L 05/10/17 14:15 WBC 10.5 H RBC 2.74 L Hgb 8.7 L D Hct 24.7 L MCV 90.4 MCH 31.7 MCHC 35.1 RDW 13.8 Plt Count 418 MPV 7.7 Sodium Potassium Chloride Carbon Dioxide Anion Gap BUN Creatinine Creat Clearance w eGFR Random Glucose Calcium Total Bilirubin AST ALT Alkaline Phosphatase Total Protein Albumin HOSPITAL COURSE: Date of Admission:05/06/17 Date of Discharge: 05/10/17 ADmitting diagnosis: Sepsis due to endometriosis and Ecoli UTI, retained products of conception Procedure 05/09/17 suction D&C imaging TVUS: Retained POC. Thickened endometrium suggestive of hematoma/blood products. pre hospital course Pt is a 36 yo F (T4 A1 L4) presenting with worsening lower abdominal pain and vaginal bleed since an 2 weeks ago. Pt had a D&C in a different hospital following 18 weeks gestation. She has been having vaginal bleed for the past 2 weeks, that has increased in quantity with large clots and up to 10 changes of pads daily, over the past 3 days. There is associated 8/10 colicky lower abdominal pain, radiating to the back and dysuria. There is also nausea but no vomiting. Today, Pt noticed chills but no fevers. There is associated dizziness, but no syncope, no SOB, no chest pain, no palpitations, no leg swellings and no cough. No change in bowel habit. Last BM was today, of brown, non-bloody well formed stool. Patient has had reduced oral intake due to nausea. Subsequent [facility] started on methergine, IVF, clinda, gentamycin. Abx switched to zosyn. pt did not clinically improve and repeat D&C was done. was found to be severely anemic and received 1 unit PRBC during hospital stay. clinically improved. d/c home on augmentin for additional week. started on iron supplements Minutes to complete discharge: 40 Discharge Summary Reason For Visit: RETAINED PROUDUCTS OF CONCEPTION FOLLOWING ABORTIO Current Active Problems Acute blood loss anemia (Acute) Iron deficiency anemia (Acute) Retained products of conception (Acute) Vaginal bleeding (Acute) Condition: Stable - Instructions Diet, Activity, Other Instructions: Please return to the emergency department with any new or worsening symptoms or concerns. Please follow up with your [facility] physician within 24 hours. Please take as Methergine 0.2 mg every 6 hours for the next 24 hours. 4 pills total. - Home Medications Comprehensive Discharge Medication List: Ambulatory Orders Amox-Tr/K Cl [Augmentin - 875Mg Tablet] 1 tab PO BID #14 tablet 05/10/17 Ferrous Sulfate [Feosol] 325 mg PO BID #60 ud 05/10/17 This patient is new to me today: No Emergency Visit: Yes ED Registration Date: 05/06/17 Care time: The patient presented to the Emergency Department on the above date and was hospitalized for further evaluation of their emergent condition. Critical Care patient: No - Discharge Referral Referred to [facility] Med P.C.: No
--- NOTE | 2017-05-12 14:24 | PATH ---
Surgical Pathology Report Patient Name: LISA JENKINS [facility]. Rec. #: [id number] /Age/Gender: 1980 (Age: 36) / F Account: [id number] Location: [facility] OBS/DEBEAKER Taken: 05/09/2017 Received: 05/09/2017 Reported: 05/12/2017 Physicians: Margi Restrepo M.D. Specimen(s) Received RETAINED CONTENTS OF CONCEPTION Clinical History Retained products of conception after Final Diagnosis UTERINE CONTENTS, CURRETTING: CHORIONIC VILLI CONSISTENT WITH PRODUCTS OF CONCEPTION. Electronically Signed Tyree Christopher M.D. Gross Description Received in formalin labeled "retained contents of conception," is a 14.0 x 12.0 x 1.2 cm aggregate of roche red soft tissue fragments. Villous tissue is identified. No definite somatic tissue is identified. A senior human resources representative portion is submitted in one cassette. /05/09/2017 saudi/05/09/2017
== END 2017-05-10 17:00 | disposition home or self-care (01) | DRG 544 ==
LOC: JER 14:42 → JERBED 23:14 → OBSVTOIN 05-06 00:12 → J3W 05-06 00:45
PROVIDERS: ADMIT Internal Medicine; ATTEND Internal Medicine
PROC: 30233N1 Transfusion of Nonautologous Red Blood Cells into Peripheral Vein, Percutaneous Approach (ICD-10-PCS; 2017-05-09)
PROC: 10D17ZZ Extraction of Products of Conception, Retained, Via Natural or Artificial Opening (ICD-10-PCS; principal; 2017-05-09 07:30)
DX: O03.37 Sepsis following incomplete spontaneous abortion (principal); A41.89 Other specified sepsis; N80.8 Other endometriosis; R00.0 Tachycardia, unspecified; O03.5 Genital tract and pelvic infection following complete or unspecified spontaneous abortion; N39.0 Urinary tract infection, site not specified; D72.828 Other elevated white blood cell count; D62 Acute posthemorrhagic anemia; B95.2 Enterococcus as the cause of diseases classified elsewhere
CPT/HCPCS: 36415; 36430; 76830-TC; 80048; 80053; 81003; 81015; 82728; 83540; 83550; 83605; 83735; 84100; 84466; 84702; 85025; 85027; 85610; 85730; 86850; 86900; 86901; 86922; 87040; 87086; 87186; 88305-TC; 99284-25; G0378; P9038; P9058

== ENCOUNTER 2020-10-17 17:09 | Emergency (ER) | payer OTHER ==
[2020-10-17 17:21] VITALS: BMI 25.9
[2020-10-17] MEDS ORDERED: METOCLOPRAMIDE HCL INJECTION 10 MG/2 ML VIAL IVPUSH ONE (18:43)
[2020-10-17] MEDS ORDERED: ACETAMINOPHEN 1000 MG/100 ML VIAL IVPB ONE (18:43)
[2020-10-17] MEDS ORDERED: SODIUM CHLORIDE 0.9% 500 ML INFUS.BAG IV ONE (18:43)
[2020-10-17] MEDS ORDERED: METOCLOPRAMIDE HCL INJECTION 10 MG/2 ML VIAL ONE (18:53)
[2020-10-17] MEDS ORDERED: ACETAMINOPHEN INJECTION 100 ML IVPB ONE (18:53)
[2020-10-17 19:28] LABS: URINE APPEARANCE TURBID; URINE BILIRUBIN NEGATIVE (NEGATIVE); URINE COLOR YELLOW; URINE GLUCOSE (UA) NEGATIVE (NEGATIVE); URINE KETONE NEGATIVE (NEGATIVE); URINE LEUK ESTERASE NEGATIVE (NEGATIVE); URINE NITRITE NEGATIVE (NEGATIVE); URINE PROTEIN NEGATIVE (NEGATIVE); URINE UROBILINOGEN 0.2 mg/dL (0.2-1.0)
[2020-10-17 21:44] VITALS: BP 111/65; PULSE 84; TEMP 98.4
== END 2020-10-17 21:30 | disposition home or self-care (01) ==
LOC: JER 17:09
PROC: 3E033GC Introduction of Other Therapeutic Substance into Peripheral Vein, Percutaneous Approach (ICD-10-PCS; principal; 2020-10-17)
DX: R06.02 Shortness of breath (principal)
CPT/HCPCS: 71045-TC-FY; 81003; 87086; 96374; 96375; 99284-25; J0131

== ENCOUNTER 2021-01-12 09:30 | Inpatient (IN) | payer OTHER ==
[2021-01-12] MEDS ORDERED: BUTORPHANOL TARTRATE 2 MG/ML VIAL IVPB ONE (10:41)
[2021-01-12] MEDS ORDERED: PROMETHAZINE HCL 25 MG/1 ML VIAL IVPB ONE (10:41)
[2021-01-12] MEDS ORDERED: DEXTROSE 5%-LACTATED RINGERS 1,000 ML IV SCH (10:45)
[2021-01-12 11:10] LABS: BASO % 0.4 % (0-2.0); EOS % 8.3 % (0-4.5); HEMATOCRIT 34.8 % (32.4-45.2); HEMOGLOBIN 12.1 GM/dL (10.7-15.3); LYMPH % 16.8 % (8-40); MCH 32.9 pg (25.7-33.7); MCHC 34.7 g/dl (32.0-36.0); MEAN CELL VOLUME 94.8 fl (80-96); MEAN PLT VOLUME 7.5 fl (7.5-11.1); MONO % 5.9 % (3.8-10.2); NEUT % 68.6 % (42.8-82.8); PLATELET COUNT 333 10^3/uL (134-434); RBC 3.67 M/mm3 (3.60-5.2); RDW 13.9 % (11.6-15.6); WHITE BLOOD COUNT 12.9 K/mm3 (4.0-10.0)
[2021-01-12 11:16] LABS: INR 0.85 (0.83-1.09); PROTHROMBIN TIME (PATIENT) 9.9 SEC (9.7-13.0)
[2021-01-12 11:19] LABS: ACTIVATED PTT 25.7 SECONDS (25.2-36.5)
[2021-01-12 11:29] LABS: CALCIUM 9.4 mg/dL (8.5-10.1)
[2021-01-12 11:30] LABS: BLOOD UREA NITROGEN 8.7 mg/dL (7-18)
[2021-01-12 11:31] VITALS: BMI 27.9
[2021-01-12 11:33] LABS: CREATININE 0.5 mg/dL (0.55-1.3)
[2021-01-12] MEDS ORDERED: OXYTOCIN 30 UNITS in 0.9% NS 30 UNIT/500 ML INFUS.BAG IVPB SCH (12:15)
[2021-01-12] MEDS ORDERED: OXYTOCIN 30 UNITS in 0.9% NS 30 UNIT/500 ML INFUS.BAG IVPB ONE (12:38)
[2021-01-12] MEDS ORDERED: BUTORPHANOL TARTRATE 2 MG/ML VIAL ONE (14:15)
[2021-01-12] MEDS ORDERED: PROMETHAZINE HCL 25 MG/1 ML VIAL ONE (14:15)
[2021-01-12] MEDS ORDERED: OXYTOCIN 20 UNITS in 0.9% NS 20 UNIT/1,000 ML INFUS.BAG IV ONE (14:34)
[2021-01-12] MEDS ORDERED: WITCH HAZEL 50% (TUCKS) 40 PAD/JAR PAD TP PRN (15:33)
[2021-01-12] MEDS ORDERED: BISACODYL 10 MG SUPP.RECT RC PRN (15:33)
[2021-01-12] MEDS ORDERED: ACETAMINOPHEN 325 MG TABLET (FP) PO PRN (15:33)
[2021-01-12] MEDS ORDERED: METHYLERGONOVINE MALEATE 0.2 MG/1 ML AMP IM PRN (15:33)
[2021-01-12] MEDS ORDERED: BENZOCAINE 20% 57 GM BOTTLE TP PRN (15:33)
[2021-01-12] MEDS ORDERED: BENZOCAINE 28 GM HEMORRHOIDAL OINTMENT TP PRN (15:33)
[2021-01-12] MEDS ORDERED: OXYTOCIN 20 UNITS in 0.9% NS 20 UNIT/1,000 ML INFUS.BAG IV SCH (15:45)
[2021-01-12 16:38] LABS: CORD BASE EXCESS -4.5 mmol/L (0-2); CORD HCO3 21.1 mmHg (20-29); CORD pH 7.33 (7.14-7.44)
[2021-01-12 16:39] LABS: CORD BASE EXCESS -4.3 mmol/L (0-2); CORD HCO3 24.9 mmHg (20-29); CORD PCO2 61.5 mmHg (30-78); CORD pH 7.226 (7.14-7.44)
[2021-01-12] MEDS: FERROUS SO4 325 MG TABLET (FP) PO SCH (18:31)
[2021-01-12] MEDS ORDERED: FERROUS SO4 325 MG TABLET (FP) ONE (18:32)
[2021-01-12] MEDS: IBUPROFEN 600 MG TABLET (FP) PO PRN (22:17)
[2021-01-13] MEDS: FERROUS SO4 325 MG TABLET (FP) PO SCH ×2 (08:53→17:23)
[2021-01-13 08:54] LABS: BASO % 0.4 % (0-2.0); EOS % 5.8 % (0-4.5); HEMOGLOBIN 10.1 GM/dL (10.7-15.3); LYMPH % 22.7 % (8-40); MCH 33.9 pg (25.7-33.7); MCHC 34.7 g/dl (32.0-36.0); MEAN CELL VOLUME 97.6 fl (80-96); MEAN PLT VOLUME 8.1 fl (7.5-11.1); MONO % 4.9 % (3.8-10.2); NEUT % 66.2 % (42.8-82.8); PLATELET COUNT 313 10^3/uL (134-434); RBC 2.97 M/mm3 (3.60-5.2); RDW 13.9 % (11.6-15.6)
[2021-01-13] MEDS: IBUPROFEN 600 MG TABLET (FP) PO PRN (09:05)
[2021-01-13] MEDS: PRENATAL VITAMINS W/ FOLIC ACID TABLET (FP) PO SCH (09:13)
[2021-01-13] MEDS ORDERED: PRENATAL VITAMINS W/ FOLIC ACID TABLET (FP) PO SCH (10:00)
[2021-01-13] MEDS ORDERED: SENNOSIDES/DOCUSATE COMBO (SENNA PLUS) TABLET (UD) PO PRN (22:00)
[2021-01-14] MEDS: FERROUS SO4 325 MG TABLET (FP) PO SCH (09:53)
[2021-01-14] MEDS: PRENATAL VITAMINS W/ FOLIC ACID TABLET (FP) PO SCH (09:53)
[2021-01-14 11:25] VITALS: BP 115/79; PULSE 81; TEMP 98.6
== END 2021-01-14 15:55 | disposition home or self-care (01) | DRG 560 ==
LOC: JLDR 09:30 → J3W 19:41
PROVIDERS: ADMIT Obstetrics & Gynecology; ATTEND Obstetrics & Gynecology
PROC: 10E0XZZ Delivery of Products of Conception, External Approach (ICD-10-PCS; principal; 2021-01-12)
PROC: 10907ZC Drainage of Amniotic Fluid, Therapeutic from Products of Conception, Via Natural or Artificial Opening (ICD-10-PCS; 2021-01-12)
DX: O48.0 Post-term pregnancy (principal); Z3A.40 40 weeks gestation of pregnancy; Z37.0 Single live birth
CPT/HCPCS: 36415; 36600; 59409; 80048; 82803; 85025; 85610; 85730; 86780; 86850; 86900; 86901; C9803; U0003; U0005